=== PATIENT | male | born 1955 | race Caucasian/White ===

== ENCOUNTER 2021-05-12 09:41 | Emergency (ER) | payer MEDICARE ==
[2021-05-12] MEDS ORDERED: Albuterol/Ipratropium 3.0-0.5 MG/3 ML Neb Soln NEB ONE (09:49)
[2021-05-12] MEDS ORDERED: methylPREDNISolone Sodium Succinate 125 MG/2 ML SDV IM ONE (09:49)
[2021-05-12] MEDS ORDERED: LORazepam 2 MG/ML SDV IM STA (09:54)
--- NOTE | 2021-05-12 10:43 | EDM.PDOC ---
ED HPI GENERAL MEDICAL PROBLEM - General Stated Complaint: SOB Time Seen by Provider: 05/12/21 09:50 Source of Information: Reports: Patient History Limitations: Reports: No Limitations - History of Present Illness INITIAL COMMENTS - FREE TEXT/NARRATIVE: Patient presented to the ED because of dyspnea for 2-3 days, increase coughing which is non-productive. there is no fever, chills, N/V/D. He has a history of COPD and Asthma, he used his inhaler without significant relief. - Related Data Allergies Allergy/AdvReac Type Severity Reaction Status Date / Time No Known Allergies Allergy Unverified 03/26/21 10:12 Home Meds: Home Meds Albuterol Sulfate [Albuterol Sulfate Hfa] 2 inh INH Q4H PRN 02/18/21 [History] Albuterol/Ipratropium [DuoNeb 3.0-0.5 MG/3 ML] 3 ml INH Q4H PRN 02/18/21 [History] Aspirin 81 mg PO DAILY 02/18/21 [History] Clopidogrel [Plavix] 75 mg PO DAILY 02/18/21 [History] Famotidine 20 mg PO BID 02/18/21 [History] Fluticasone/Umeclidin/Vilanter [Trelegy Ellipta 100-62.5-25] 1 puff INH DAILY 02/18/21 [History] Gabapentin [Neurontin] 300 mg PO BID 02/18/21 [History] LORazepam [Lorazepam] 0.5 mg PO DAILY PRN 02/18/21 [History] Losartan [Cozaar] 25 mg PO DAILY 02/18/21 [History] Montelukast [Singulair] 10 mg PO BEDTIME 02/18/21 [History] Tamsulosin [Flomax] 0.4 mg PO BEDTIME 02/18/21 [History] atorvaSTATin [Lipitor] 40 mg PO BEDTIME 02/18/21 [History] busPIRone [Buspar] 5 mg PO BID 02/18/21 [History] carvediloL [Carvedilol] 12.5 mg PO BID 02/18/21 [History] metFORMIN HCl [Metformin HCl ER] 750 mg PO BID 02/18/21 [History] Ascorbate Calcium [Vitamin C] 500 mg PO DAILY PRN 03/25/21 [History] Citalopram Hydrobromide [Celexa] 40 mg PO DAILY 03/25/21 [History] Ketorolac [Acular 0.5% Ophth Soln] 1 drop EYERT TID 03/25/21 [History] prednisoLONE acetate [Pred Forte 1% Ophth Susp] 1 drop EYERT QID 03/25/21 [History] tiZANidine [Zanaflex] 2 mg PO BID 03/25/21 [History] Furosemide [Lasix] 40 mg PO DAILY #30 tablet 03/28/21 [Rx] Nicotine [Habitrol] 14 mg TRDERM BEDTIME #14 patch 03/28/21 [Rx] Tiotropium [place] [Spiriva Respimat] 0 gm INH DAILY inhaler 03/28/21 [Rx] Azithromycin [Zithromax] 500 mg PO DAILY #5 tab 05/12/21 [Rx] predniSONE [Prednisone] 40 mg PO DAILY #10 tablet 05/12/21 [Rx] Past Medical History HEENT History: Reports: Cataract Cardiovascular History: Reports: CAD, Heart Failure, Hypertension Respiratory History: Reports: COPD, SOB Endocrine/Metabolic History: Reports: Diabetes, Type I - Past Surgical History HEENT Surgical History: Reports: Cataract Surgery Cardiovascular Surgical History: Reports: Carotid Stents Social & Family History - Family History Family Medical History: No Pertinent Family History - Caffeine Use Caffeine Use: Reports: Coffee ED ROS GENERAL - Review of Systems Review Of Systems: See Below Constitutional: Reports: No Symptoms HEENT: Reports: No Symptoms Respiratory: Reports: Shortness of Breath Cardiovascular: Reports: No Symptoms Endocrine: Reports: No Symptoms GI/Abdominal: Reports: No Symptoms : Reports: No Symptoms Musculoskeletal: Reports: No Symptoms Skin: Reports: No Symptoms Neurological: Reports: No Symptoms Psychiatric: Reports: No Symptoms Hematologic/Lymphatic: Reports: No Symptoms ED EXAM, GENERAL - Physical Exam Exam: See Below Exam Limited By: No Limitations Ears: Normal External Exam, Normal [place] Nose: Normal Inspection, Normal Mucosa, No Blood Throat/Mouth: Normal Inspection, Normal Lips, Normal Teeth Neck: Normal Inspection Respiratory/Chest: No Respiratory Distress, Lungs Clear, No Accessory Muscle Use, Chest Non-Tender, Rhonchi, Wheezing Cardiovascular: Normal Peripheral Pulses, Regular Rate, Rhythm, No Edema, No Murmur, No Rub GI/Abdominal: Normal Bowel Sounds, Soft, Non-Tender, No Organomegaly, No Distention Back Exam: Normal Inspection, Full Range of Motion Extremities: Normal Inspection, Normal Range of Motion, Non-Tender Neurological: Alert, Oriented, CN II-XII Intact, Normal Cognition, Normal Gait, Normal Reflexes, No Motor/Sensory Deficits Psychiatric: Normal Affect Skin Exam: Warm Course - Vital Signs Text/Narrative:: Duoneb x1 Ativan 1 mg IM x1 Solumedrol 125 mg IM x1 Last Recorded V/S: Last Vital Signs Temp 36.8 C 05/12/21 09:45 Pulse 84 05/12/21 09:45 Resp 24 H 05/12/21 09:45 BP 148/115 H 05/12/21 09:45 Pulse Ox 97 05/12/21 09:45 - Orders/Labs/Meds Meds: Medications Discontinued Medications Generic Name Dose Route Start Last Admin Trade Name Bret PRN Reason Stop Dose Admin Albuterol/Ipratropium 3 ml 05/12/21 09:49 05/12/21 09:53 Albuterol/Ipratropium 3.0-0.5 Mg/3 Ml Neb Soln NEB 05/12/21 09:50 3 ml ONETIME ONE Administration Lorazepam 1 mg 05/12/21 09:54 05/12/21 10:07 Lorazepam 2 Mg/Ml Sdv IM 05/12/21 09:55 1 mg NOW STA Administration Methylprednisolone Sodium Succinate 125 mg 05/12/21 09:49 05/12/21 09:54 Methylprednisolone Sodium Succinate 125 Mg/2 Ml Sdv IM 05/12/21 09:50 125 mg ONETIME ONE Administration Departure - Departure Time of Disposition: 10:45 Disposition: Home, Self-Care 01 Condition: Good Clinical Impression: COPD exacerbation, Asthma exacerbation, Anxiety attack - Discharge Information Prescriptions: predniSONE [Prednisone] 40 mg PO DAILY #10 tablet Azithromycin [Zithromax] 500 mg PO DAILY #5 tab Instructions: Chronic Obstructive Pulmonary Disease, [id number], Asthma, Adult, [id number], Panic Attack Referrals: Gold Jama MD [Primary Care Provider] - Forms: ED Department Discharge Additional Instructions: Please read discharge instructions on COPD and Asthma flare up Drink 2 liters of water daily Prednisone 40 mg daily starting today Zithromax 500 mg daily starting today Albuterol inhaler, neb treatment as directed Follow up as needed
== END 2021-05-12 11:15 | disposition home or self-care (01) ==
LOC: FB.ED 09:41
DX: J44.1 Chronic obstructive pulmonary disease with (acute) exacerbation (principal); F41.9 Anxiety disorder, unspecified; I11.0 Hypertensive heart disease with heart failure; I50.9 Heart failure, unspecified; E10.9 Type 1 diabetes mellitus without complications; Z79.82 Long term (current) use of aspirin; Z79.02 Long term (current) use of antithrombotics/antiplatelets; Z79.899 Other long term (current) drug therapy
CPT/HCPCS: 96372; 99284; J2060; J2930; J7620-GY

== ENCOUNTER 2021-06-25 11:44 | Observation (INO) | payer MEDICARE ==
--- NOTE | 2021-06-25 11:53 | EDM.PDOC ---
ED HPI GENERAL MEDICAL PROBLEM - General Chief Complaint: Respiratory Problem Time Seen by Provider: 06/25/21 11:50 Source of Information: Reports: Patient History Limitations: Reports: No Limitations - History of Present Illness INITIAL COMMENTS - FREE TEXT/NARRATIVE: 65-year-old male who presents to the emergency department with increasing difficulty breathing, increasing cough and worsening anxiety. He has long- standing history of COPD and CHF with chronic difficulty breathing. He reports that over the past 3 days he has had an increase in his cough with creamy white thick phlegm production. He has had no fevers or chills. There has been no nausea or vomiting. He does have some tightness in his chest in that he feels that it is hard to take a deep breath and it is worse with breathing. He also reports a headache that is diffuse and is throbbing. He reports the headache is 10/10. No nausea or vomiting. He finds it difficult to get around secondary to his increased shortness of breath. He has been using his nebulizer treatments and his inhalers without much relief at home. He also reports swelling in both of his legs. He presents to the emergency department via private vehicle by his . There are no other associated signs or symptoms. There are no other modifying factors. 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 - Related Data Allergies Allergy/AdvReac Type Severity Reaction Status Date / Time No Known Allergies Allergy Verified 06/25/21 12:00 Home Meds: Home Meds Albuterol Sulfate [Albuterol Sulfate Hfa] 2 inh INH Q4H PRN 02/18/21 [History] Albuterol/Ipratropium [DuoNeb 3.0-0.5 MG/3 ML] 3 ml INH Q4H PRN 02/18/21 [History] Aspirin 81 mg PO DAILY 02/18/21 [History] Clopidogrel [Plavix] 75 mg PO DAILY 02/18/21 [History] Famotidine 20 mg PO BID 02/18/21 [History] Gabapentin [Neurontin] 600 mg PO BID 02/18/21 [History] LORazepam [Lorazepam] 0.5 mg PO DAILY PRN 02/18/21 [History] Losartan [Cozaar] 25 mg PO DAILY 02/18/21 [History] Montelukast [Singulair] 10 mg PO BEDTIME 02/18/21 [History] Tamsulosin [Flomax] 0.4 mg PO BEDTIME 02/18/21 [History] atorvaSTATin [Lipitor] 40 mg PO BEDTIME 02/18/21 [History] carvediloL [Carvedilol] 12.5 mg PO BID 02/18/21 [History] metFORMIN HCl [Metformin HCl ER] 750 mg PO BID 02/18/21 [History] Citalopram Hydrobromide [Celexa] 40 mg PO DAILY 03/25/21 [History] Furosemide [Lasix] 40 mg PO DAILY #30 tablet 03/28/21 [Rx] Oxymetazoline [Afrin Original 0.05% Nasal [place]] 1 spray NASBOTH DAILY PRN 06/25/21 [History] busPIRone [Buspar] 5 mg PO BID 06/25/21 [History] Past Medical History HEENT History: Reports: Cataract Cardiovascular History: Reports: CAD, Heart Failure, High Cholesterol, Hypertension, PVD Respiratory History: Reports: Asthma, COPD, SOB Psychiatric History: Reports: Anxiety Endocrine/Metabolic History: Reports: Diabetes, Type I - Past Surgical History HEENT Surgical History: Reports: Cataract Surgery Cardiovascular Surgical History: Reports: Carotid Stents, Vascular Surgery Social & Family History - Tobacco Use Tobacco Use Status *Q: Former Tobacco User (Quit smoking 3 years ago but was a heavy smoker prior to this.) - Caffeine Use Caffeine Use: Reports: None - Alcohol Use Alcohol Use History: No Alcohol Use Comment: Local use for the past 3 years. - Living Situation & Occupation Living situation: Reports: Occupation: Retired ED ROS GENERAL - Review of Systems Review Of Systems: See Below Constitutional: Reports: Malaise, Decreased Appetite. Denies: Fever, Chills HEENT: Reports: Other (Chronic nasal congestion unchanged.). Denies: Throat Pain, Throat Swelling Respiratory: Reports: Shortness of Breath, Wheezing, Cough, Sputum. Denies: Hemoptysis Cardiovascular: Reports: Dyspnea on Exertion, Edema, Lightheadedness. Denies: Chest Pain Endocrine: Reports: Fatigue GI/Abdominal: Denies: Abdominal Pain, Diarrhea, Nausea, Vomiting : Denies: Dysuria, Hematuria Musculoskeletal: Reports: Back Pain (Chronic). Denies: Neck Pain, Arm Pain Skin: Denies: Diaphoresis, Rash Neurological: Denies: Confusion, Dizziness Psychiatric: Reports: Anxiety. Denies: Confusion Hematologic/Lymphatic: Reports: Easy Bleeding, Easy Bruising, Other (on plavix) Immunologic: Reports: Other (vaccinated for covid and has gotten the booster vaccine as well.) ED EXAM, GENERAL - Physical Exam Exam: See Below Exam Limited By: No Limitations General Appearance: Alert, WD/WN, Moderate Distress (Audible wheezes, increased work of breathing. Speaking in 1-2 word sentences.) Eye Exam: Bilateral Eye: EOMI, Normal Inspection (Sclera are anicteric), PERRL Ears: Normal External Exam, Hearing Grossly Normal Ear Exam: Bilateral Ear: Auricle Normal Nose: No Blood, Nasal Drainage, Other (Nasal congestion) Throat/Mouth: Normal Inspection, Normal Voice, No Airway Compromise Head: Atraumatic, Normocephalic Neck: Normal Inspection, Supple, Non-Tender, Full Range of Motion Respiratory/Chest: Chest Non-Tender, Respiratory Distress (Increased work of breathing.), Rhonchi, Wheezing, Accessory Muscle Use Cardiovascular: Normal Peripheral Pulses, Regular Rate, Rhythm, No Gallop, No Murmur Peripheral Pulses: 2+: Radial (L), Radial (R), Dorsalis Pedis (L), Dorsalis Pedis (R) GI/Abdominal: Normal Bowel Sounds, Soft, Non-Tender, No Mass Back Exam: Normal Inspection, Full Range of Motion Extremities: Normal Range of Motion, Non-Tender, Normal Capillary Refill, Pedal Edema. No: Increased Warmth, Redness Neurological: Alert, Oriented, CN II-XII Intact, Normal Cognition, No Motor/Sensory Deficits Psychiatric: Depressed Mood Skin Exam: Warm, Dry, Intact, Normal Color, No Rash #1 Interpretation EKG Date: 06/25/21 Time: 12:33 Rhythm: NSR Rate (Beats/Min): 72 [place]: LAD-Left [place] Deviation P-Wave: Present QRS: Other (LAFB) ST-T: Other (Poor R-wave progression) QT: Normal Comparison: No Change (No change from an EKG performed on 03/27/2021.) Course - Vital Signs Last Recorded V/S: Last Vital Signs Temp 36.6 C 06/25/21 11:45 Pulse 78 06/25/21 11:45 Resp 20 06/25/21 11:45 BP Pulse Ox 93 L 06/25/21 11:45 - Orders/Labs/Meds Orders: Active Orders 24 hr Category Date Time Status Admission Status [Patient Status] [ADT] Routine ADT 06/25/21 15:09 Active Cardiac Monitoring [RC] QSHIFT Care 06/25/21 15:09 Active RT Aerosol Therapy [RC] ASDIRECTED Care 06/25/21 13:48 Active Consistent Carbohydrate Diet [DIET] Diet 06/25/21 Dinner Ordered Sodium Chloride 0.9% [Saline Flush] Med 06/25/21 12:01 Active 10 ml FLUSH ASDIRECTED PRN Peripheral IV Insertion Pediatric [OM.PC] Routine Oth 06/25/21 12:01 Ordered EKG 12 Lead [EK] Routine Ther 06/25/21 12:01 Ordered Medication Orders Sodium Chloride (Sodium Chloride 0.9% 10 Ml Syringe) 10 ml FLUSH ASDIRECTED PRN PRN Reason: Keep Vein Open Last Admin: 06/25/21 16:40 Dose: 10 ml Documented by: Admin: 06/25/21 12:15 Dose: 10 ml Documented by: DALIA Labs: Laboratory Tests 06/25/21 06/25/21 06/25/21 Range/Units 12:25 12:25 12:25 WBC 5.1 (3.2-10.1) x10-3/uL RBC 3.98 (3.90-5.90) x10(6)uL Hgb 12.1 L (12.9-17.7) g/dL Hct 36.8 L (38.3-50.1) % MCV 92.4 (80.8-98.7) fL MCH 30.4 (27.0-33.3) pg MCHC 32.9 (28.7-35.3) g/dL RDW 14.7 (12.4-15.0) % Plt Count 157 (117-477) x10(3)uL MPV 7.1 (6.7-11.0) fL Neut % (Auto) 64.1 (40.3-71.8) % Lymph % (Auto) 22.2 (15.8-45.3) % [place] % (Auto) 10.3 (5.5-15.2) % Eos % (Auto) 2.5 (0.1-6.8) % Baso % (Auto) 0.9 (0.3-3.8) % Neut # (Auto) 3.3 (1.7-6.9) x10-3/uL Lymph # (Auto) 1.1 (0.5-4.5) x10-3/uL [place] # (Auto) 0.5 (0.0-1.2) x10-3/uL Eos # (Auto) 0.1 (0.0-0.6) x10-3/uL Baso # (Auto) 0.0 (0.0-0.3) x10-3/uL PT 11.0 (9.0-11.1) sec INR 1.02 (1.00-1.24) POC VBG pH (7.32-7.43) pH Units POC VBG pCO2 (41-51) mmHg POC VBG HCO3 (22-29) mmol/L VBG Base Excess (-2 - 3+) mmol/L O2 Delivery Device Oxygen Flow Rate LPM Sodium 138 (135-145) mmol/L Potassium 4.1 (3.5-5.3) mmol/L Chloride 103 (100-110) mmol/L Carbon Dioxide 31 (21-32) mmol/L BUN 16 D (7-18) mg/dL Creatinine 1.4 H (0.70-1.30) mg/dL Est Cr Clr Drug Dosing TNP Estimated GFR (MDRD) 51 L (>60) BUN/Creatinine Ratio 11.4 (9-20) Glucose 122 H D (80-116) mg/dL Calcium 8.8 (8.6-10.2) mg/dL Magnesium 1.8 (1.8-2.5) mg/dL Total Bilirubin 0.7 (0.1-1.3) mg/dL AST 15 (5-25) IU/L ALT 23 D (12-36) U/L Alkaline Phosphatase 53 L (56-112) IU/L Troponin I (4.0-60.3) pg/mL C-Reactive Protein (0.5-0.9) mg/dL NT-Pro-B Natriuret Pep (<=125) pg/mL Total Protein 6.6 (6.0-8.0) g/dL Albumin 3.7 (3.2-4.6) g/dL Globulin 2.9 g/dL Albumin/Globulin Ratio 1.3 Urine Color (YELLOW) Urine Appearance (CLEAR) Urine pH (5.0-6.5) Ur Specific [place] (1.010-1.025) Urine Protein (NEGATIVE) mg/dL Urine Glucose (UA) (NORMAL) mg/dL Urine Ketones (NEGATIVE) mg/dL Urine Occult Blood (NEGATIVE) Urine Nitrite (NEGATIVE) Urine Bilirubin (NEGATIVE) Urine Urobilinogen (NEGATIVE) mg/dL Ur Leukocyte Esterase (NEGATIVE) Urine RBC (0-5) Urine WBC (0-5) Ur Squamous Epith Cells (NS,R,O) Urine Bacteria (NS) SARS-CoV-2 RNA (DEYSI) (NEGATIVE) 06/25/21 06/25/21 06/25/21 Range/Units 12:25 12:25 12:25 WBC (3.2-10.1) x10-3/uL RBC (3.90-5.90) x10(6)uL Hgb (12.9-17.7) g/dL Hct (38.3-50.1) % MCV (80.8-98.7) fL MCH (27.0-33.3) pg MCHC (28.7-35.3) g/dL RDW (12.4-15.0) % Plt Count (117-477) x10(3)uL MPV (6.7-11.0) fL Neut % (Auto) (40.3-71.8) % Lymph % (Auto) (15.8-45.3) % [place] % (Auto) (5.5-15.2) % Eos % (Auto) (0.1-6.8) % Baso % (Auto) (0.3-3.8) % Neut # (Auto) (1.7-6.9) x10-3/uL Lymph # (Auto) (0.5-4.5) x10-3/uL [place] # (Auto) (0.0-1.2) x10-3/uL Eos # (Auto) (0.0-0.6) x10-3/uL Baso # (Auto) (0.0-0.3) x10-3/uL PT (9.0-11.1) sec INR (1.00-1.24) POC VBG pH (7.32-7.43) pH Units POC VBG pCO2 (41-51) mmHg POC VBG HCO3 (22-29) mmol/L VBG Base Excess (-2 - 3+) mmol/L O2 Delivery Device Oxygen Flow Rate LPM Sodium (135-145) mmol/L Potassium (3.5-5.3) mmol/L Chloride (100-110) mmol/L Carbon Dioxide (21-32) mmol/L BUN (7-18) mg/dL Creatinine (0.70-1.30) mg/dL Est Cr Clr Drug Dosing Estimated GFR (MDRD) (>60) BUN/Creatinine Ratio (9-20) Glucose (80-116) mg/dL Calcium (8.6-10.2) mg/dL Magnesium (1.8-2.5) mg/dL Total Bilirubin (0.1-1.3) mg/dL AST (5-25) IU/L ALT (12-36) U/L Alkaline Phosphatase (56-112) IU/L Troponin I 6.6 (4.0-60.3) pg/mL C-Reactive Protein < 0.2 L (0.5-0.9) mg/dL NT-Pro-B Natriuret Pep 91 (<=125) pg/mL Total Protein (6.0-8.0) g/dL Albumin (3.2-4.6) g/dL Globulin g/dL Albumin/Globulin Ratio Urine Color (YELLOW) Urine Appearance (CLEAR) Urine pH (5.0-6.5) Ur Specific [place] (1.010-1.025) Urine Protein (NEGATIVE) mg/dL Urine Glucose (UA) (NORMAL) mg/dL Urine Ketones (NEGATIVE) mg/dL Urine Occult Blood (NEGATIVE) Urine Nitrite (NEGATIVE) Urine Bilirubin (NEGATIVE) Urine Urobilinogen (NEGATIVE) mg/dL Ur Leukocyte Esterase (NEGATIVE) Urine RBC (0-5) Urine WBC (0-5) Ur Squamous Epith Cells (NS,R,O) Urine Bacteria (NS) SARS-CoV-2 RNA (DEYSI) (NEGATIVE) 06/25/21 06/25/21 06/25/21 Range/Units 12:29 12:40 14:15 WBC (3.2-10.1) x10-3/uL RBC (3.90-5.90) x10(6)uL Hgb (12.9-17.7) g/dL Hct (38.3-50.1) % MCV (80.8-98.7) fL MCH (27.0-33.3) pg MCHC (28.7-35.3) g/dL RDW (12.4-15.0) % Plt Count (117-477) x10(3)uL MPV (6.7-11.0) fL Neut % (Auto) (40.3-71.8) % Lymph % (Auto) (15.8-45.3) % [place] % (Auto) (5.5-15.2) % Eos % (Auto) (0.1-6.8) % Baso % (Auto) (0.3-3.8) % Neut # (Auto) (1.7-6.9) x10-3/uL Lymph # (Auto) (0.5-4.5) x10-3/uL [place] # (Auto) (0.0-1.2) x10-3/uL Eos # (Auto) (0.0-0.6) x10-3/uL Baso # (Auto) (0.0-0.3) x10-3/uL PT (9.0-11.1) sec INR (1.00-1.24) POC VBG pH 7.37 (7.32-7.43) pH Units POC VBG pCO2 51 (41-51) mmHg POC VBG HCO3 30 H (22-29) mmol/L VBG Base Excess 4 H (-2 - 3+) mmol/L O2 Delivery Device Nasal cannula Oxygen Flow Rate 2 LPM Sodium (135-145) mmol/L Potassium (3.5-5.3) mmol/L Chloride (100-110) mmol/L Carbon Dioxide (21-32) mmol/L BUN (7-18) mg/dL Creatinine (0.70-1.30) mg/dL Est Cr Clr Drug Dosing Estimated GFR (MDRD) (>60) BUN/Creatinine Ratio (9-20) Glucose (80-116) mg/dL Calcium (8.6-10.2) mg/dL Magnesium (1.8-2.5) mg/dL Total Bilirubin (0.1-1.3) mg/dL AST (5-25) IU/L ALT (12-36) U/L Alkaline Phosphatase (56-112) IU/L Troponin I (4.0-60.3) pg/mL C-Reactive Protein (0.5-0.9) mg/dL NT-Pro-B Natriuret Pep (<=125) pg/mL Total Protein (6.0-8.0) g/dL Albumin (3.2-4.6) g/dL Globulin g/dL Albumin/Globulin Ratio Urine Color Yellow (YELLOW) Urine Appearance Clear (CLEAR) Urine pH 7.0 H (5.0-6.5) Ur Specific [place] 1.005 L (1.010-1.025) Urine Protein Negative (NEGATIVE) mg/dL Urine Glucose (UA) Normal (NORMAL) mg/dL Urine Ketones Negative (NEGATIVE) mg/dL Urine Occult Blood Negative (NEGATIVE) Urine Nitrite Negative (NEGATIVE) Urine Bilirubin Negative (NEGATIVE) Urine Urobilinogen Normal (NEGATIVE) mg/dL Ur Leukocyte Esterase Negative (NEGATIVE) Urine RBC Not seen (0-5) Urine WBC 0-5 (0-5) Ur Squamous Epith Cells Few H (NS,R,O) Urine Bacteria Few H (NS) SARS-CoV-2 RNA (DEYSI) Negative (NEGATIVE) Meds: Medications Generic Name Dose Route Start Last Admin Trade Name Freq PRN Reason Stop Dose Admin Sodium Chloride 10 ml 06/25/21 12:01 06/25/21 16:40 Sodium Chloride 0.9% 10 Ml Syringe FLUSH 10 ml ASDIRECTED PRN Administration Keep Vein Open Discontinued Medications Generic Name Dose Route Start Last Admin Trade Name Freq PRN Reason Stop Dose Admin Albuterol/Ipratropium 3 ml 06/25/21 13:47 06/25/21 14:05 Albuterol/Ipratropium 3.0-0.5 Mg/3 Ml Neb Soln NEB 06/25/21 13:48 3 ml ONETIME ONE Administration Ceftriaxone Sodium 1 gm 06/25/21 15:12 06/25/21 16:40 Ceftriaxone 1 Gm Vial IVPUSH 06/25/21 15:13 1 gm ONETIME ONE Administration Furosemide 40 mg 06/25/21 15:09 06/25/21 16:40 Furosemide 40 Mg/4 Ml Vial IVPUSH 06/25/21 15:10 40 mg NOW ONE Administration Lorazepam 1 mg 06/25/21 12:29 06/25/21 12:40 Lorazepam 1 Mg Tab PO 06/25/21 12:30 1 mg ONETIME ONE Administration Methylprednisolone Sodium Succinate 125 mg 06/25/21 13:47 06/25/21 14:00 Methylprednisolone Sodium Succinate 125 Mg/2 Ml Sdv IVPUSH 06/25/21 13:48 125 mg ONETIME ONE Administration - Radiology Interpretation Free Text/Narrative:: Portable chest x-ray shows no definite pneumonia and really no change from previous chest x-ray per my read. - Re-Assessments/Exams Free Text/Narrative Re-Assessment/Exam: 06/25/21 1300: White blood cell count is 5.1. Hemoglobin is 12.1. Platelet count is 157K. Sodium was 138. Potassium is 4.1. Bicarbonate is 31. BUN is 16 and creatinine is 1.4. Glucose is 122. LFTs are normal. Troponin is 6.6. A magnesium level is normal. A venous pH was 7.37. PCO2 was 51. The patient has been vaccinated fully against Covid and also has just received the booster Mary. We will be doing a rapid Covid on him nonetheless. He is still having cough and wheezing with decreased air movement. I don't hear any rales. He is requiring some minimal oxygen to keep him in the 91-95% range. He does seem very anxious and will be given Ativan 1 mg oral. 06/25/21 1400: Chest x-ray shows no definite infiltrate and no real change from previous. A proBNP was normal. A Covid test was negative. I will order a DuoNeb to be given and also Solu-Medrol to be given IV as well. The patient still has increased work of breathing and he is having some hypoxia which is new as well. I think he most probably will need admission for cares. 06/25/21 1450: Urinalysis had been performed and it was negative. The patient was reevaluated after his neb and Solu-Medrol and he does seem to be moving elevated better but he still has a very wheezy cough and increased work of breathing. He will need admission for COPD exacerbation secondary to his hypoxic and hypercapnic respiratory failure need IV steroids, frequent nebulizer treatments and IV antibiotics. He will also need some diuresis because he does have some increase in swelling in his legs. I this with the patient and he would be in agreement with admission. 06/25/21 15:08: I discussed the patient's case with Dr. Sparrow, hospitalist, and he has agreed to admit the patient. I will place some initial orders and he will see the patient at about 5 PM. Departure - Departure Time of Disposition: 15:09 Disposition: Refer to Observation Condition: Fair Clinical Impression: Acute exacerbation of chronic obstructive pulmonary disease (COPD), Peripheral edema Respiratory failure with hypoxia Qualifiers: Chronicity: acute Qualified Code(s): J96.01 - Acute respiratory failure with hypoxia - Discharge Information Sepsis Event Note (ED) - Focused Exam Vital Signs: Vital Signs Temp Pulse Resp Pulse Ox 06/25/21 11:45 36.6 C 78 20 93 L - My Orders Last 24 Hours: My Active Orders 06/25/21 12:01 Sodium Chloride 0.9% [Saline Flush] 10 ml FLUSH ASDIRECTED PRN Peripheral IV Insertion Pediatric [OM.PC] Routine EKG 12 Lead [EK] Routine 06/25/21 13:48 RT Aerosol Therapy [RC] ASDIRECTED 06/25/21 15:09 Admission Status [Patient Status] [ADT] Routine Cardiac Monitoring [RC] QSHIFT 06/25/21 Dinner Consistent Carbohydrate Diet [DIET] - Assessment/Plan Last 24 Hours: My Active Orders 06/25/21 12:01 Sodium Chloride 0.9% [Saline Flush] 10 ml FLUSH ASDIRECTED PRN Peripheral IV Insertion Pediatric [OM.PC] Routine EKG 12 Lead [EK] Routine 06/25/21 13:48 RT Aerosol Therapy [RC] ASDIRECTED 06/25/21 15:09 Admission Status [Patient Status] [ADT] Routine Cardiac Monitoring [RC] QSHIFT 06/25/21 Dinner Consistent Carbohydrate Diet [DIET]
[2021-06-25] MEDS: Sodium Chloride 0.9% 10 ML Syringe FLUSH PRN ×4 (12:15→22:05)
[2021-06-25] MEDS ORDERED: LORazepam 1 MG Tab PO ONE (12:29)
[2021-06-25 12:35] LABS: BASE EXCESS VENOUS,POC 4 mmol/L (-2 - 3+); PCO2 VENOUS,POC 51 mmHg (41-51); PH VENOUS,POC 7.37 pH Units (7.32-7.43)
[2021-06-25] MEDS ORDERED: methylPREDNISolone Sodium Succinate 125 MG/2 ML SDV IVPUSH ONE (13:47)
[2021-06-25] MEDS ORDERED: Albuterol/Ipratropium 3.0-0.5 MG/3 ML Neb Soln NEB ONE (13:47)
--- NOTE | 2021-06-25 13:58 | CR ---
INDICATION: Cough, difficulty breathing. CHEST, ONE VIEW: AP upright portable view of the chest, 06/25/21, was compared with 03/25/21 and 02/18/21. The upper lung field pulmonary vasculature remains slightly prominent with a mildly prominent heart, raising question of mild degree of CHF. This should be correlated clinically. Pulmonary markings otherwise are similar to the previous examination without a definite active infiltrate or effusion identified. However, markings are somewhat heavy in the right midlung field and make it difficult to exclude a minimal patchy bronchopneumonia in that area, especially. Overlying EKG leads are noted. The aorta is minimally tortuous with minimal calcifications suggested in the arch. IMPRESSION: Overall stable appearance of the chest with question of a mild degree of CHF. It is difficult to exclude a minimal patchy bronchopneumonia in the right midlung field additionally. MTDD
[2021-06-25] MEDS ORDERED: Furosemide 40 MG/4 ML VIAL IVPUSH ONE (15:09)
[2021-06-25] MEDS ORDERED: cefTRIAXone 1 GM Vial IVPUSH ONE (15:12)
[2021-06-25] MEDS ORDERED: Oxymetazoline 0.05% Nasal Spray 30 ML Bottle NASBOTH PRN (17:05)
[2021-06-25] MEDS ORDERED: 50% Dextrose in Water 50 ML Syringe IVPUSH PRN (17:05)
[2021-06-25] MEDS ORDERED: Glucagon,Human Recombinant 1 MG Vial IM PRN (17:05)
[2021-06-25] MEDS ORDERED: LORazepam 0.5 MG Tab PO PRN (17:05)
--- NOTE | 2021-06-25 17:12 | PCM.HP.2 ---
H&P History of Present Illness - General Date of Service: 06/25/21 Admit Problem/Dx: Admission Diagnosis/Problem Admission Diagnosis/Problem COPD with acute lower respiratory infection Source of Information: Patient, Provider History Limitations: Reports: No Limitations - History of Present Illness Initial Comments - Free Text/Narative: Yaya is a 65-year-old male who presented to ER with cough, worsening wheezing and shortness of breath about 3 day period. He reports having been sick on and off for at least 2 months, in fact, he was here in February with a similar present ation. His cough is productive yellow sputum, but he has no chest pain or fever. He endorses a history of COPD/asthma, and history of CHF. He also has a history of anxiety, type 2 diabetes and hypertension. Is a previous smoker with a more than 50 year pack history.He uses about 2 L of O2 at night - Related Data Allergies/Adverse Reactions: Allergies Allergy/AdvReac Type Severity Reaction Status Date / Time No Known Allergies Allergy Verified 06/25/21 12:00 Home Medications: Home Meds Albuterol Sulfate [Albuterol Sulfate Hfa] 2 inh INH Q4H PRN 02/18/21 [History] Albuterol/Ipratropium [DuoNeb 3.0-0.5 MG/3 ML] 3 ml INH Q4H PRN 02/18/21 [History] Aspirin 81 mg PO DAILY 02/18/21 [History] Clopidogrel [Plavix] 75 mg PO DAILY 02/18/21 [History] Famotidine 20 mg PO BID 02/18/21 [History] Gabapentin [Neurontin] 600 mg PO BID 02/18/21 [History] LORazepam [Lorazepam] 0.5 mg PO DAILY PRN 02/18/21 [History] Losartan [Cozaar] 25 mg PO DAILY 02/18/21 [History] Montelukast [Singulair] 10 mg PO BEDTIME 02/18/21 [History] Tamsulosin [Flomax] 0.4 mg PO BEDTIME 02/18/21 [History] atorvaSTATin [Lipitor] 40 mg PO BEDTIME 02/18/21 [History] carvediloL [Carvedilol] 12.5 mg PO BID 02/18/21 [History] metFORMIN HCl [Metformin HCl ER] 750 mg PO BID 02/18/21 [History] Citalopram Hydrobromide [Celexa] 40 mg PO DAILY 03/25/21 [History] Furosemide [Lasix] 40 mg PO DAILY #30 tablet 03/28/21 [Rx] Oxymetazoline [Afrin Original 0.05% Nasal [place]] 1 spray NASBOTH DAILY PRN 06/25/21 [History] busPIRone [Buspar] 5 mg PO BID 06/25/21 [History] Past Medical History HEENT History: Reports: Cataract Cardiovascular History: Reports: CAD, Heart Failure, High Cholesterol, Hypertension, PVD Respiratory History: Reports: Asthma, COPD, SOB Gastrointestinal History: Reports: None Genitourinary History: Reports: None Musculoskeletal History: Reports: Arthritis Psychiatric History: Reports: Anxiety Endocrine/Metabolic History: Reports: Diabetes, Type I Immunologic History: Reports: None Oncologic (Cancer) History: Reports: None - Infectious Disease History Infectious Disease History: Reports: None - Past Surgical History Head Surgeries/Procedures: Reports: None HEENT Surgical History: Reports: Cataract Surgery Cardiovascular Surgical History: Reports: Carotid Stents, Vascular Surgery Oncologic Surgical History: Reports: None Social & Family History - Family History Family Medical History: No Pertinent Family History - Tobacco Use Tobacco Use Status *Q: Former Tobacco User Used Tobacco, but Quit: Yes Month/Year Tobacco Last Used: 2017 - Caffeine Use Caffeine Use: Reports: Coffee - Recreational Drug Use Recreational Drug Use: No - Living Situation & Occupation Living situation: Reports: Occupation: Retired H&P Review of Systems - Review of Systems: Review Of Systems: Comprehensive ROS is negative, except as noted in HPI. Exam - Exam Exam: See Below - Vital Signs Vital Signs: Last Vital Signs Temp 98 F 06/25/21 11:45 Pulse 78 06/25/21 11:45 Resp 20 06/25/21 11:45 BP Pulse Ox 93 L 06/25/21 11:45 Weight: 92.533 kg - Exam General: Alert, Oriented, 4 HEENT: PERRLA, Hearing Intact, Mucosa Moist & [place], Nares Patent, Normal Nasal Septum, Posterior Pharynx Clear, Conjunctiva Clear, EOMI, EACs Clear, TMs Clear Neck: Supple, Trachea Midline, 2 Lungs: Decreased Breath Sounds, Rhonchi Cardiovascular: Regular Rate, Regular Rhythm GI/Abdominal Exam: Normal Bowel Sounds, Soft, Non-Tender, No Organomegaly, No Distention, No Abnormal Bruit, No Mass, Pelvis Stable (Male) Exam: Deferred Rectal (Males) Exam: Deferred Back Exam: Normal Inspection, Full Range of Motion, NT Extremities: Pedal Edema Skin: Warm, Dry, Intact Neurological: Cranial Nerves Intact, Reflexes Equal Bilateral Neuro Extensive - Mental Status: Alert, Oriented x3, Normal Mood/Affect, Normal Cognition Neuro Extensive - Motor, Sensory, Reflexes: CN II-XII Intact, Normal Gait, Normal Reflexes Psychiatric: Alert, Normal Affect, Normal Mood - Patient Data Lab Results Last 24 hrs: Laboratory Results - last 24 hr 06/25/21 06/25/21 06/25/21 Range/Units 12:25 12:25 12:25 WBC 5.1 (3.2-10.1) x10-3/uL RBC 3.98 (3.90-5.90) x10(6)uL Hgb 12.1 L (12.9-17.7) g/dL Hct 36.8 L (38.3-50.1) % MCV 92.4 (80.8-98.7) fL MCH 30.4 (27.0-33.3) pg MCHC 32.9 (28.7-35.3) g/dL RDW 14.7 (12.4-15.0) % Plt Count 157 (117-477) x10(3)uL MPV 7.1 (6.7-11.0) fL Neut % (Auto) 64.1 (40.3-71.8) % Lymph % (Auto) 22.2 (15.8-45.3) % Major % (Auto) 10.3 (5.5-15.2) % Eos % (Auto) 2.5 (0.1-6.8) % Baso % (Auto) 0.9 (0.3-3.8) % Neut # (Auto) 3.3 (1.7-6.9) x10-3/uL Lymph # (Auto) 1.1 (0.5-4.5) x10-3/uL Major # (Auto) 0.5 (0.0-1.2) x10-3/uL Eos # (Auto) 0.1 (0.0-0.6) x10-3/uL Baso # (Auto) 0.0 (0.0-0.3) x10-3/uL PT 11.0 (9.0-11.1) sec INR 1.02 (1.00-1.24) POC VBG pH (7.32-7.43) pH Units POC VBG pCO2 (41-51) mmHg POC VBG HCO3 (22-29) mmol/L VBG Base Excess (-2 - 3+) mmol/L O2 Delivery Device Oxygen Flow Rate LPM Sodium 138 (135-145) mmol/L Potassium 4.1 (3.5-5.3) mmol/L Chloride 103 (100-110) mmol/L Carbon Dioxide 31 (21-32) mmol/L BUN 16 D (7-18) mg/dL Creatinine 1.4 H (0.70-1.30) mg/dL Est Cr Clr Drug Dosing TNP Estimated GFR (MDRD) 51 L (>60) BUN/Creatinine Ratio 11.4 (9-20) Glucose 122 H D (80-116) mg/dL Calcium 8.8 (8.6-10.2) mg/dL Magnesium 1.8 (1.8-2.5) mg/dL Total Bilirubin 0.7 (0.1-1.3) mg/dL AST 15 (5-25) IU/L ALT 23 D (12-36) U/L Alkaline Phosphatase 53 L (56-112) IU/L Troponin I (4.0-60.3) pg/mL C-Reactive Protein (0.5-0.9) mg/dL NT-Pro-B Natriuret Pep (<=125) pg/mL Total Protein 6.6 (6.0-8.0) g/dL Albumin 3.7 (3.2-4.6) g/dL Globulin 2.9 g/dL Albumin/Globulin Ratio 1.3 Urine Color (YELLOW) Urine Appearance (CLEAR) Urine pH (5.0-6.5) Ur Specific [place] (1.010-1.025) Urine Protein (NEGATIVE) mg/dL Urine Glucose (UA) (NORMAL) mg/dL Urine Ketones (NEGATIVE) mg/dL Urine Occult Blood (NEGATIVE) Urine Nitrite (NEGATIVE) Urine Bilirubin (NEGATIVE) Urine Urobilinogen (NEGATIVE) mg/dL Ur Leukocyte Esterase (NEGATIVE) Urine RBC (0-5) Urine WBC (0-5) Ur Squamous Epith Cells (NS,R,O) Urine Bacteria (NS) SARS-CoV-2 RNA (DEYSI) (NEGATIVE) 06/25/21 06/25/21 06/25/21 Range/Units 12:25 12:25 12:25 WBC (3.2-10.1) x10-3/uL RBC (3.90-5.90) x10(6)uL Hgb (12.9-17.7) g/dL Hct (38.3-50.1) % MCV (80.8-98.7) fL MCH (27.0-33.3) pg MCHC (28.7-35.3) g/dL RDW (12.4-15.0) % Plt Count (117-477) x10(3)uL MPV (6.7-11.0) fL Neut % (Auto) (40.3-71.8) % Lymph % (Auto) (15.8-45.3) % Major % (Auto) (5.5-15.2) % Eos % (Auto) (0.1-6.8) % Baso % (Auto) (0.3-3.8) % Neut # (Auto) (1.7-6.9) x10-3/uL Lymph # (Auto) (0.5-4.5) x10-3/uL Major # (Auto) (0.0-1.2) x10-3/uL Eos # (Auto) (0.0-0.6) x10-3/uL Baso # (Auto) (0.0-0.3) x10-3/uL PT (9.0-11.1) sec INR (1.00-1.24) POC VBG pH (7.32-7.43) pH Units POC VBG pCO2 (41-51) mmHg POC VBG HCO3 (22-29) mmol/L VBG Base Excess (-2 - 3+) mmol/L O2 Delivery Device Oxygen Flow Rate LPM Sodium (135-145) mmol/L Potassium (3.5-5.3) mmol/L Chloride (100-110) mmol/L Carbon Dioxide (21-32) mmol/L BUN (7-18) mg/dL Creatinine (0.70-1.30) mg/dL Est Cr Clr Drug Dosing Estimated GFR (MDRD) (>60) BUN/Creatinine Ratio (9-20) Glucose (80-116) mg/dL Calcium (8.6-10.2) mg/dL Magnesium (1.8-2.5) mg/dL Total Bilirubin (0.1-1.3) mg/dL AST (5-25) IU/L ALT (12-36) U/L Alkaline Phosphatase (56-112) IU/L Troponin I 6.6 (4.0-60.3) pg/mL C-Reactive Protein < 0.2 L (0.5-0.9) mg/dL NT-Pro-B Natriuret Pep 91 (<=125) pg/mL Total Protein (6.0-8.0) g/dL Albumin (3.2-4.6) g/dL Globulin g/dL Albumin/Globulin Ratio Urine Color (YELLOW) Urine Appearance (CLEAR) Urine pH (5.0-6.5) Ur Specific [place] (1.010-1.025) Urine Protein (NEGATIVE) mg/dL Urine Glucose (UA) (NORMAL) mg/dL Urine Ketones (NEGATIVE) mg/dL Urine Occult Blood (NEGATIVE) Urine Nitrite (NEGATIVE) Urine Bilirubin (NEGATIVE) Urine Urobilinogen (NEGATIVE) mg/dL Ur Leukocyte Esterase (NEGATIVE) Urine RBC (0-5) Urine WBC (0-5) Ur Squamous Epith Cells (NS,R,O) Urine Bacteria (NS) SARS-CoV-2 RNA (DEYSI) (NEGATIVE) 06/25/21 06/25/21 06/25/21 Range/Units 12:29 12:40 14:15 WBC (3.2-10.1) x10-3/uL RBC (3.90-5.90) x10(6)uL Hgb (12.9-17.7) g/dL Hct (38.3-50.1) % MCV (80.8-98.7) fL MCH (27.0-33.3) pg MCHC (28.7-35.3) g/dL RDW (12.4-15.0) % Plt Count (117-477) x10(3)uL MPV (6.7-11.0) fL Neut % (Auto) (40.3-71.8) % Lymph % (Auto) (15.8-45.3) % Major % (Auto) (5.5-15.2) % Eos % (Auto) (0.1-6.8) % Baso % (Auto) (0.3-3.8) % Neut # (Auto) (1.7-6.9) x10-3/uL Lymph # (Auto) (0.5-4.5) x10-3/uL Major # (Auto) (0.0-1.2) x10-3/uL Eos # (Auto) (0.0-0.6) x10-3/uL Baso # (Auto) (0.0-0.3) x10-3/uL PT (9.0-11.1) sec INR (1.00-1.24) POC VBG pH 7.37 (7.32-7.43) pH Units POC VBG pCO2 51 (41-51) mmHg POC VBG HCO3 30 H (22-29) mmol/L VBG Base Excess 4 H (-2 - 3+) mmol/L O2 Delivery Device Nasal cannula Oxygen Flow Rate 2 LPM Sodium (135-145) mmol/L Potassium (3.5-5.3) mmol/L Chloride (100-110) mmol/L Carbon Dioxide (21-32) mmol/L BUN (7-18) mg/dL Creatinine (0.70-1.30) mg/dL Est Cr Clr Drug Dosing Estimated GFR (MDRD) (>60) BUN/Creatinine Ratio (9-20) Glucose (80-116) mg/dL Calcium (8.6-10.2) mg/dL Magnesium (1.8-2.5) mg/dL Total Bilirubin (0.1-1.3) mg/dL AST (5-25) IU/L ALT (12-36) U/L Alkaline Phosphatase (56-112) IU/L Troponin I (4.0-60.3) pg/mL C-Reactive Protein (0.5-0.9) mg/dL NT-Pro-B Natriuret Pep (<=125) pg/mL Total Protein (6.0-8.0) g/dL Albumin (3.2-4.6) g/dL Globulin g/dL Albumin/Globulin Ratio Urine Color Yellow (YELLOW) Urine Appearance Clear (CLEAR) Urine pH 7.0 H (5.0-6.5) Ur Specific [place] 1.005 L (1.010-1.025) Urine Protein Negative (NEGATIVE) mg/dL Urine Glucose (UA) Normal (NORMAL) mg/dL Urine Ketones Negative (NEGATIVE) mg/dL Urine Occult Blood Negative (NEGATIVE) Urine Nitrite Negative (NEGATIVE) Urine Bilirubin Negative (NEGATIVE) Urine Urobilinogen Normal (NEGATIVE) mg/dL Ur Leukocyte Esterase Negative (NEGATIVE) Urine RBC Not seen (0-5) Urine WBC 0-5 (0-5) Ur Squamous Epith Cells Few H (NS,R,O) Urine Bacteria Few H (NS) SARS-CoV-2 RNA (DEYSI) Negative (NEGATIVE) Result Diagrams: 06/25/21 12:25 06/25/21 12:25 Sepsis Event Note - Evaluation Sepsis Screening Result: No Definite Risk - Focused Exam Vital Signs: Vital Signs Temp Pulse Resp Pulse Ox 06/25/21 11:45 98 F 78 20 93 L - Problem List (1) COPD exacerbation SNOMED Code(s): 719199560 ICD Code: J44.1 - CHRONIC OBSTRUCTIVE PULMONARY DISEASE W (ACUTE) EXACERBATION Status: Acute Current Visit: Yes (2) Diabetes type 2, controlled SNOMED Code(s): 47205208, 864853633 ICD Code: E11.9 - TYPE 2 DIABETES MELLITUS WITHOUT COMPLICATIONS Status: Acute Current Visit: Yes Qualifiers: Diabetes mellitus [facility] insulin use: without intermediate manager use (3) VIOLET (generalized anxiety disorder) SNOMED Code(s): 65627923 ICD Code: F41.1 - GENERALIZED ANXIETY DISORDER Status: Acute Current Visit: Yes (4) CHF (congestive heart failure) SNOMED Code(s): 06988200 ICD Code: I50.9 - HEART FAILURE, UNSPECIFIED Status: Chronic Current Visit: No Qualifiers: Heart failure chronicity: unspecified Problem List Initiated/Reviewed/Updated: Yes Orders Last 24hrs: Active Orders 24 hr Category Date Time Status Admission Status [Patient Status] [ADT] Routine ADT 06/25/21 15:09 Active Accu Check [Blood Glucose Check, Bedside] [RC] TIDMEALS Care 06/25/21 17:05 Ordered Cardiac Monitoring [RC] QSHIFT Care 06/25/21 15:09 Active RT Aerosol Therapy [RC] ASDIRECTED Care 06/25/21 13:48 Active RT Aerosol Therapy [RC] ASDIRECTED Care 06/25/21 17:04 Ordered Consistent Carbohydrate Diet [DIET] Diet 06/25/21 Dinner Ordered BASIC METABOLIC PANEL,BMP [CHEM] AM Lab 06/26/21 05:11 Ordered CBC WITH AUTO DIFF [HEME] AM Lab 06/26/21 05:11 Ordered Albuterol/Ipratropium [DuoNeb 3.0-0.5 MG/3 ML] Med 06/25/21 17:15 Ordered 3 ml NEB Q4H Aspirin Med 06/26/21 09:00 Ordered 81 mg PO DAILY Citalopram Hydrobromide [Celexa] Med 06/26/21 09:00 Ordered 40 mg PO DAILY Clopidogrel [Plavix] Med 06/26/21 09:00 Ordered 75 mg PO DAILY Dextrose 50% in Water Med 06/25/21 17:05 Ordered 50 ml IVPUSH ASDIRECTED PRN Famotidine [Pepcid] Med 06/25/21 21:00 Ordered 20 mg PO BID Furosemide [Lasix] Med 06/26/21 09:00 Ordered 40 mg PO DAILY Gabapentin [Neurontin] Med 06/25/21 21:00 Ordered 600 mg PO BID Glucagon,Human Recombinant [GlucaGen] Med 06/25/21 17:05 Ordered 1 mg IM ASDIRECTED PRN Insulin Lispro [HumaLOG] Med 06/25/21 18:00 Ordered See Protocol SUBCUT TIDMEALS LORazepam [Ativan] Med 06/25/21 17:05 Ordered 0.5 mg PO DAILY PRN Levofloxacin/Dextrose 5%-Water [Levaquin in D5W 500 MG/ Med 06/25/21 17:15 Ordered 100 ML] 500 mg Premix Bag 1 bag IV Q24H Losartan [Cozaar] Med 06/26/21 09:00 Ordered 25 mg PO DAILY Montelukast [Singulair] Med 06/25/21 21:00 Ordered 10 mg PO BEDTIME Oxymetazoline [Nasal Decongestant [place]] Med 06/25/21 17:05 Ordered 1 spray NASBOTH DAILY PRN Sodium Chloride 0.9% [Saline Flush] Med 06/25/21 12:01 Active 10 ml FLUSH ASDIRECTED PRN Tamsulosin [Flomax] Med 06/25/21 21:00 Ordered 0.4 mg PO BEDTIME atorvaSTATin [Lipitor] Med 06/25/21 21:00 Ordered 40 mg PO BEDTIME busPIRone [Buspar] Med 06/25/21 21:00 Ordered 5 mg PO BID carvediloL [Coreg] Med 06/25/21 21:00 Ordered 12.5 mg PO BID metFORMIN HCl [Metformin HCl ER] Med 06/25/21 21:00 Ordered 750 mg PO BID methylPREDNISolone Sod Succ [Solu-MEDROL] Med 06/25/21 17:15 Ordered 125 mg IVPUSH Q8H Peripheral IV Insertion Pediatric [OM.PC] Routine Oth 06/25/21 12:01 Ordered EKG 12 Lead [EK] Routine Ther 06/25/21 12:01 Ordered Medication Orders Albuterol/Ipratropium (Albuterol/Ipratropium 3.0-0.5 Mg/3 Ml Neb Soln) 3 ml NEB Q4H [facility] Aspirin (Aspirin 81 Mg Tab.Chew) 81 mg PO DAILY [facility] Atorvastatin Calcium (Atorvastatin 40 Mg Tab) 40 mg PO BEDTIME [facility] Buspirone HCl (Buspirone 10 Mg Tab) 5 mg PO BID [facility] Carvedilol (Carvedilol 12.5 Mg Tab) 12.5 mg PO BID [facility] Clopidogrel Bisulfate (Clopidogrel 75 Mg Tab) 75 mg PO DAILY [facility] Dextrose/Water (50% Dextrose In Water 50 Ml Syringe) 50 ml IVPUSH ASDIRECTED PRN PRN Reason: Hypoglycemia Famotidine (Famotidine 20 Mg Tab) 20 mg PO BID [facility] Furosemide (Furosemide 40 Mg Tab) 40 mg PO DAILY [facility] Gabapentin (Gabapentin 300 Mg Cap) 600 mg PO BID [facility] Glucagon (Glucagon,Human Recombinant 1 Mg Vial) 1 mg IM ASDIRECTED PRN PRN Reason: Hypoglycemia Levofloxacin/Dextrose 500 mg/ (Premix) 100 mls @ 100 mls/hr IV Q24H [facility] Insulin Human Lispro (Insulin Lispro 100 Unit/Ml 3 Ml Kwikpen) 0 unit SUBCUT TIDMEALS ROSALIO; Protocol Lorazepam (Lorazepam 0.5 Mg Tab) 0.5 mg PO DAILY PRN PRN Reason: Anxiety Losartan Potassium (Losartan 25 Mg Tab) 25 mg PO DAILY [facility] Methylprednisolone Sodium Succinate (Methylprednisolone Sodium Succinate 125 Mg/2 Ml Sdv) 125 mg IVPUSH Q8H [facility] Montelukast Sodium (Montelukast 10 Mg Tab) 10 mg PO BEDTIME [facility] Non-Formulary Medication (Citalopram Hydrobromide [Celexa]) 40 mg PO DAILY [facility] Non-Formulary Medication (Metformin Hcl [Metformin Hcl Er]) 750 mg PO BID [facility] Oxymetazoline HCl (Oxymetazoline 0.05% Nasal [place] 30 Ml Bottle) ml NASBOTH DAILY PRN PRN Reason: Congestion Sodium Chloride (Sodium Chloride 0.9% 10 Ml Syringe) 10 ml FLUSH ASDIRECTED PRN PRN Reason: Keep Vein Open Last Admin: 06/25/21 16:40 Dose: 10 ml Documented by: Admin: 06/25/21 12:15 Dose: 10 ml Documented by: DALIA Tamsulosin HCl (Tamsulosin 0.4 Mg Cap.Er) 0.4 mg PO BEDTIME [facility] Assessment/Plan Comment:: Admit. Start continuos O2 supplementation. IV SoluMedrol, IV Levaquin for COPD exacerbation. keep tight glycemic control( SSI)
[2021-06-25] MEDS ORDERED: Albuterol/Ipratropium 3.0-0.5 MG/3 ML Neb Soln INH PRN (17:13)
[2021-06-25] MEDS: Levofloxacin/Dextrose 5%-Water 500 MG in Premix Bag 1 BAG IV SCH (17:51)
[2021-06-25] MEDS: Albuterol/Ipratropium 3.0-0.5 MG/3 ML Neb Soln NEB SCH ×2 (17:51→20:46)
[2021-06-25] MEDS ORDERED: OXYMETAZOLINE 0.05% NASBOTH PRN (17:55)
[2021-06-25] MEDS ORDERED: Insulin Lispro 100 Unit/ML 3 ML KwikPen SUBCUT ONE (18:01)
[2021-06-25] MEDS: Insulin Lispro 100 Unit/ML 3 ML KwikPen SUBCUT SCH (18:02)
[2021-06-25] MEDS: busPIRone 10 MG Tab PO SCH (20:34)
[2021-06-25] MEDS: Carvedilol 12.5 MG Tab PO SCH (20:34)
[2021-06-25] MEDS: Tamsulosin 0.4 MG Cap.ER **OWN MED PO SCH (20:35)
[2021-06-25] MEDS: atorvaSTATin 40 MG Tab PO SCH (20:36)
[2021-06-25] MEDS: METFORMIN 750 MG PO SCH (20:36)
[2021-06-25] MEDS: Famotidine 20 MG Tab **OWN MED PO SCH (20:37)
[2021-06-25] MEDS: Gabapentin 300 MG Cap PO SCH (20:45)
[2021-06-25] MEDS: methylPREDNISolone Sodium Succinate 125 MG/2 ML SDV IVPUSH SCH (22:00)
[2021-06-26] MEDS: Albuterol/Ipratropium 3.0-0.5 MG/3 ML Neb Soln NEB SCH ×6 (01:29→21:30)
[2021-06-26] MEDS: Sodium Chloride 0.9% 10 ML Syringe FLUSH PRN ×2 (05:28→13:48)
[2021-06-26] MEDS: methylPREDNISolone Sodium Succinate 125 MG/2 ML SDV IVPUSH SCH ×3 (05:28→22:30)
[2021-06-26] MEDS: busPIRone 10 MG Tab PO SCH ×2 (08:36→20:33)
[2021-06-26] MEDS: Carvedilol 12.5 MG Tab PO SCH ×2 (08:36→20:33)
[2021-06-26] MEDS: CITALOPRAM 40 MG PO SCH (08:36)
[2021-06-26] MEDS: Losartan 25 MG Tab **OWN MED PO SCH (08:37)
[2021-06-26] MEDS: METFORMIN 750 MG PO SCH ×2 (08:38→20:33)
[2021-06-26] MEDS: Furosemide 40 MG Tab **OWN MED PO SCH (08:38)
[2021-06-26] MEDS: Aspirin 81 MG Tab.EC PO SCH (08:38)
[2021-06-26] MEDS: Insulin Lispro 100 Unit/ML 3 ML KwikPen SUBCUT SCH ×3 (08:39→17:40)
[2021-06-26] MEDS: Clopidogrel 75 MG Tab **OWN MED PO SCH (08:39)
[2021-06-26] MEDS: Famotidine 20 MG Tab **OWN MED PO SCH ×2 (08:39→20:34)
[2021-06-26] MEDS: Gabapentin 300 MG Cap PO SCH ×2 (08:53→20:32)
--- NOTE | 2021-06-26 09:45 | PCM.PN ---
- General Info Date of Service: 06/26/21 Subjective Update: Yaya feels better than yesterday, still short of breath and wheezing, but does much improved. Denies fever, or chest pain. Functional Status: Reports: Pain Controlled - Review of Systems General: Reports: No Symptoms HEENT: Reports: No Symptoms Pulmonary: Reports: Shortness of Breath, Sputum, Wheezing Cardiovascular: Reports: Orthopnea Gastrointestinal: Reports: No Symptoms Genitourinary: Reports: No Symptoms - Patient Data Vitals - Most Recent: Last Vital Signs Temp 96.7 F L 06/26/21 05:36 Pulse 98 06/26/21 08:36 Resp 20 06/26/21 05:36 BP 151/83 H 06/26/21 08:37 Pulse Ox 93 L 06/26/21 05:36 Weight - Most Recent: 89.981 kg Lab Results Last 24 Hours: Laboratory Results - last 24 hr 06/25/21 06/25/21 06/25/21 Range/Units 12:25 12:25 12:25 WBC 5.1 (3.2-10.1) x10-3/uL RBC 3.98 (3.90-5.90) x10(6)uL Hgb 12.1 L (12.9-17.7) g/dL Hct 36.8 L (38.3-50.1) % MCV 92.4 (80.8-98.7) fL MCH 30.4 (27.0-33.3) pg MCHC 32.9 (28.7-35.3) g/dL RDW 14.7 (12.4-15.0) % Plt Count 157 (117-477) x10(3)uL MPV 7.1 (6.7-11.0) fL Neut % (Auto) 64.1 (40.3-71.8) % Lymph % (Auto) 22.2 (15.8-45.3) % Dougherty % (Auto) 10.3 (5.5-15.2) % Eos % (Auto) 2.5 (0.1-6.8) % Baso % (Auto) 0.9 (0.3-3.8) % Neut # (Auto) 3.3 (1.7-6.9) x10-3/uL Lymph # (Auto) 1.1 (0.5-4.5) x10-3/uL [place] # (Auto) 0.5 (0.0-1.2) x10-3/uL Eos # (Auto) 0.1 (0.0-0.6) x10-3/uL Baso # (Auto) 0.0 (0.0-0.3) x10-3/uL PT 11.0 (9.0-11.1) sec INR 1.02 (1.00-1.24) POC VBG pH (7.32-7.43) pH Units POC VBG pCO2 (41-51) mmHg POC VBG HCO3 (22-29) mmol/L VBG Base Excess (-2 - 3+) mmol/L O2 Delivery Device Oxygen Flow Rate LPM Sodium 138 (135-145) mmol/L Potassium 4.1 (3.5-5.3) mmol/L Chloride 103 (100-110) mmol/L Carbon Dioxide 31 (21-32) mmol/L BUN 16 D (7-18) mg/dL Creatinine 1.4 H (0.70-1.30) mg/dL Est Cr Clr Drug Dosing TNP Estimated GFR (MDRD) 51 L (>60) BUN/Creatinine Ratio 11.4 (9-20) Glucose 122 H D (80-116) mg/dL POC Glucose (80-116) mg/dL Calcium 8.8 (8.6-10.2) mg/dL Magnesium 1.8 (1.8-2.5) mg/dL Total Bilirubin 0.7 (0.1-1.3) mg/dL AST 15 (5-25) IU/L ALT 23 D (12-36) U/L Alkaline Phosphatase 53 L (56-112) IU/L Troponin I (4.0-60.3) pg/mL C-Reactive Protein (0.5-0.9) mg/dL NT-Pro-B Natriuret Pep (<=125) pg/mL Total Protein 6.6 (6.0-8.0) g/dL Albumin 3.7 (3.2-4.6) g/dL Globulin 2.9 g/dL Albumin/Globulin Ratio 1.3 Urine Color (YELLOW) Urine Appearance (CLEAR) Urine pH (5.0-6.5) Ur Specific [place] (1.010-1.025) Urine Protein (NEGATIVE) mg/dL Urine Glucose (UA) (NORMAL) mg/dL Urine Ketones (NEGATIVE) mg/dL Urine Occult Blood (NEGATIVE) Urine Nitrite (NEGATIVE) Urine Bilirubin (NEGATIVE) Urine Urobilinogen (NEGATIVE) mg/dL Ur Leukocyte Esterase (NEGATIVE) Urine RBC (0-5) Urine WBC (0-5) Ur Squamous Epith Cells (NS,R,O) Urine Bacteria (NS) SARS-CoV-2 RNA (DEYSI) (NEGATIVE) 06/25/21 06/25/21 06/25/21 Range/Units 12:25 12:25 12:25 WBC (3.2-10.1) x10-3/uL RBC (3.90-5.90) x10(6)uL Hgb (12.9-17.7) g/dL Hct (38.3-50.1) % MCV (80.8-98.7) fL MCH (27.0-33.3) pg MCHC (28.7-35.3) g/dL RDW (12.4-15.0) % Plt Count (117-477) x10(3)uL MPV (6.7-11.0) fL Neut % (Auto) (40.3-71.8) % Lymph % (Auto) (15.8-45.3) % Dougherty % (Auto) (5.5-15.2) % Eos % (Auto) (0.1-6.8) % Baso % (Auto) (0.3-3.8) % Neut # (Auto) (1.7-6.9) x10-3/uL Lymph # (Auto) (0.5-4.5) x10-3/uL [place] # (Auto) (0.0-1.2) x10-3/uL Eos # (Auto) (0.0-0.6) x10-3/uL Baso # (Auto) (0.0-0.3) x10-3/uL PT (9.0-11.1) sec INR (1.00-1.24) POC VBG pH (7.32-7.43) pH Units POC VBG pCO2 (41-51) mmHg POC VBG HCO3 (22-29) mmol/L VBG Base Excess (-2 - 3+) mmol/L O2 Delivery Device Oxygen Flow Rate LPM Sodium (135-145) mmol/L Potassium (3.5-5.3) mmol/L Chloride (100-110) mmol/L Carbon Dioxide (21-32) mmol/L BUN (7-18) mg/dL Creatinine (0.70-1.30) mg/dL Est Cr Clr Drug Dosing Estimated GFR (MDRD) (>60) BUN/Creatinine Ratio (9-20) Glucose (80-116) mg/dL POC Glucose (80-116) mg/dL Calcium (8.6-10.2) mg/dL Magnesium (1.8-2.5) mg/dL Total Bilirubin (0.1-1.3) mg/dL AST (5-25) IU/L ALT (12-36) U/L Alkaline Phosphatase (56-112) IU/L Troponin I 6.6 (4.0-60.3) pg/mL C-Reactive Protein < 0.2 L (0.5-0.9) mg/dL NT-Pro-B Natriuret Pep 91 (<=125) pg/mL Total Protein (6.0-8.0) g/dL Albumin (3.2-4.6) g/dL Globulin g/dL Albumin/Globulin Ratio Urine Color (YELLOW) Urine Appearance (CLEAR) Urine pH (5.0-6.5) Ur Specific [place] (1.010-1.025) Urine Protein (NEGATIVE) mg/dL Urine Glucose (UA) (NORMAL) mg/dL Urine Ketones (NEGATIVE) mg/dL Urine Occult Blood (NEGATIVE) Urine Nitrite (NEGATIVE) Urine Bilirubin (NEGATIVE) Urine Urobilinogen (NEGATIVE) mg/dL Ur Leukocyte Esterase (NEGATIVE) Urine RBC (0-5) Urine WBC (0-5) Ur Squamous Epith Cells (NS,R,O) Urine Bacteria (NS) SARS-CoV-2 RNA (DEYSI) (NEGATIVE) 06/25/21 06/25/21 06/25/21 Range/Units 12:29 12:40 14:15 WBC (3.2-10.1) x10-3/uL RBC (3.90-5.90) x10(6)uL Hgb (12.9-17.7) g/dL Hct (38.3-50.1) % MCV (80.8-98.7) fL MCH (27.0-33.3) pg MCHC (28.7-35.3) g/dL RDW (12.4-15.0) % Plt Count (117-477) x10(3)uL MPV (6.7-11.0) fL Neut % (Auto) (40.3-71.8) % Lymph % (Auto) (15.8-45.3) % Dougherty % (Auto) (5.5-15.2) % Eos % (Auto) (0.1-6.8) % Baso % (Auto) (0.3-3.8) % Neut # (Auto) (1.7-6.9) x10-3/uL Lymph # (Auto) (0.5-4.5) x10-3/uL [place] # (Auto) (0.0-1.2) x10-3/uL Eos # (Auto) (0.0-0.6) x10-3/uL Baso # (Auto) (0.0-0.3) x10-3/uL PT (9.0-11.1) sec INR (1.00-1.24) POC VBG pH 7.37 (7.32-7.43) pH Units POC VBG pCO2 51 (41-51) mmHg POC VBG HCO3 30 H (22-29) mmol/L VBG Base Excess 4 H (-2 - 3+) mmol/L O2 Delivery Device Nasal cannula Oxygen Flow Rate 2 LPM Sodium (135-145) mmol/L Potassium (3.5-5.3) mmol/L Chloride (100-110) mmol/L Carbon Dioxide (21-32) mmol/L BUN (7-18) mg/dL Creatinine (0.70-1.30) mg/dL Est Cr Clr Drug Dosing Estimated GFR (MDRD) (>60) BUN/Creatinine Ratio (9-20) Glucose (80-116) mg/dL POC Glucose (80-116) mg/dL Calcium (8.6-10.2) mg/dL Magnesium (1.8-2.5) mg/dL Total Bilirubin (0.1-1.3) mg/dL AST (5-25) IU/L ALT (12-36) U/L Alkaline Phosphatase (56-112) IU/L Troponin I (4.0-60.3) pg/mL C-Reactive Protein (0.5-0.9) mg/dL NT-Pro-B Natriuret Pep (<=125) pg/mL Total Protein (6.0-8.0) g/dL Albumin (3.2-4.6) g/dL Globulin g/dL Albumin/Globulin Ratio Urine Color Yellow (YELLOW) Urine Appearance Clear (CLEAR) Urine pH 7.0 H (5.0-6.5) Ur Specific [place] 1.005 L (1.010-1.025) Urine Protein Negative (NEGATIVE) mg/dL Urine Glucose (UA) Normal (NORMAL) mg/dL Urine Ketones Negative (NEGATIVE) mg/dL Urine Occult Blood Negative (NEGATIVE) Urine Nitrite Negative (NEGATIVE) Urine Bilirubin Negative (NEGATIVE) Urine Urobilinogen Normal (NEGATIVE) mg/dL Ur Leukocyte Esterase Negative (NEGATIVE) Urine RBC Not seen (0-5) Urine WBC 0-5 (0-5) Ur Squamous Epith Cells Few H (NS,R,O) Urine Bacteria Few H (NS) SARS-CoV-2 RNA (DEYSI) Negative (NEGATIVE) 06/25/21 06/26/21 06/26/21 Range/Units 17:59 05:55 05:55 WBC 6.9 (3.2-10.1) x10-3/uL RBC 4.30 (3.90-5.90) x10(6)uL Hgb 13.0 (12.9-17.7) g/dL Hct 39.7 (38.3-50.1) % MCV 92.3 (80.8-98.7) fL MCH 30.2 (27.0-33.3) pg MCHC 32.7 (28.7-35.3) g/dL RDW 14.5 (12.4-15.0) % Plt Count 168 (117-477) x10(3)uL MPV 7.4 (6.7-11.0) fL Neut % (Auto) 88.9 H (40.3-71.8) % Lymph % (Auto) 9.9 L (15.8-45.3) % Dougherty % (Auto) 1.1 L (5.5-15.2) % Eos % (Auto) 0.0 L (0.1-6.8) % Baso % (Auto) 0.1 L (0.3-3.8) % Neut # (Auto) 6.1 (1.7-6.9) x10-3/uL Lymph # (Auto) 0.7 (0.5-4.5) x10-3/uL Dougherty # (Auto) 0.1 (0.0-1.2) x10-3/uL Eos # (Auto) 0.0 (0.0-0.6) x10-3/uL Baso # (Auto) 0.0 (0.0-0.3) x10-3/uL PT (9.0-11.1) sec INR (1.00-1.24) POC VBG pH (7.32-7.43) pH Units POC VBG pCO2 (41-51) mmHg POC VBG HCO3 (22-29) mmol/L VBG Base Excess (-2 - 3+) mmol/L O2 Delivery Device Oxygen Flow Rate LPM Sodium 139 (135-145) mmol/L Potassium 4.3 (3.5-5.3) mmol/L Chloride 101 (100-110) mmol/L Carbon Dioxide 32 (21-32) mmol/L BUN 23 H (7-18) mg/dL Creatinine 1.4 H (0.70-1.30) mg/dL Est Cr Clr Drug Dosing 45.76 Estimated GFR (MDRD) 51 L (>60) BUN/Creatinine Ratio 16.4 (9-20) Glucose 213 H D (80-116) mg/dL POC Glucose 203 H (80-116) mg/dL Calcium 9.2 (8.6-10.2) mg/dL Magnesium (1.8-2.5) mg/dL Total Bilirubin (0.1-1.3) mg/dL AST (5-25) IU/L ALT (12-36) U/L Alkaline Phosphatase (56-112) IU/L Troponin I (4.0-60.3) pg/mL C-Reactive Protein (0.5-0.9) mg/dL NT-Pro-B Natriuret Pep (<=125) pg/mL Total Protein (6.0-8.0) g/dL Albumin (3.2-4.6) g/dL Globulin g/dL Albumin/Globulin Ratio Urine Color (YELLOW) Urine Appearance (CLEAR) Urine pH (5.0-6.5) Ur Specific [place] (1.010-1.025) Urine Protein (NEGATIVE) mg/dL Urine Glucose (UA) (NORMAL) mg/dL Urine Ketones (NEGATIVE) mg/dL Urine Occult Blood (NEGATIVE) Urine Nitrite (NEGATIVE) Urine Bilirubin (NEGATIVE) Urine Urobilinogen (NEGATIVE) mg/dL Ur Leukocyte Esterase (NEGATIVE) Urine RBC (0-5) Urine WBC (0-5) Ur Squamous Epith Cells (NS,R,O) Urine Bacteria (NS) SARS-CoV-2 RNA (DEYSI) (NEGATIVE) Med Orders - Current: Current Medications Albuterol/Ipratropium (Albuterol/Ipratropium 3.0-0.5 Mg/3 Ml Neb Soln) 3 ml NEB Q4H [facility] Last Admin: 06/26/21 09:21 Dose: 3 ml Documented by: Albuterol/Ipratropium (Albuterol/Ipratropium 3.0-0.5 Mg/3 Ml Neb Soln) 3 ml INH Q2H PRN PRN Reason: Shortness of Breath Aspirin (Aspirin 81 Mg Tab.Ec) 81 mg PO DAILY [facility] Last Admin: 06/26/21 08:38 Dose: 81 mg Documented by: Atorvastatin Calcium (Atorvastatin 40 Mg Tab) 40 mg PO BEDTIME [facility] Last Admin: 06/25/21 20:36 Dose: 40 mg Documented by: Buspirone HCl (Buspirone 10 Mg Tab) 5 mg PO BID [facility] Last Admin: 06/26/21 08:36 Dose: 5 mg Documented by: Carvedilol (Carvedilol 12.5 Mg Tab) 12.5 mg PO BID [facility] Last Admin: 06/26/21 08:36 Dose: 12.5 mg Documented by: Clopidogrel Bisulfate (Clopidogrel 75 Mg Tab Own Med) 75 mg PO DAILY [facility] Last Admin: 06/26/21 08:39 Dose: 75 mg Documented by: Dextrose/Water (50% Dextrose In Water 50 Ml Syringe) 50 ml IVPUSH ASDIRECTED PRN PRN Reason: Hypoglycemia Famotidine (Famotidine 20 Mg Tab Own Med) 20 mg PO BID [facility] Last Admin: 06/26/21 08:39 Dose: 20 mg Documented by: Furosemide (Furosemide 40 Mg Tab Own Med) 40 mg PO DAILY [facility] Last Admin: 06/26/21 08:38 Dose: 40 mg Documented by: Gabapentin (Gabapentin 300 Mg Cap) 600 mg PO BID [facility] Last Admin: 06/26/21 08:53 Dose: 600 mg Documented by: Glucagon (Glucagon,Human Recombinant 1 Mg Vial) 1 mg IM ASDIRECTED PRN PRN Reason: Hypoglycemia Levofloxacin/Dextrose 500 mg/ (Premix) 100 mls @ 100 mls/hr IV Q24H [facility] Last Admin: 06/25/21 17:51 Dose: 100 mls/hr Documented by: Insulin Human Lispro (Insulin Lispro 100 Unit/Ml 3 Ml Kwikpen) 0 unit SUBCUT TIDMEALS [facility]; Protocol Last Admin: 06/26/21 08:39 Dose: 6 units Documented by: Lorazepam (Lorazepam 0.5 Mg Tab) 0.5 mg PO DAILY PRN PRN Reason: Anxiety Last Admin: 06/25/21 20:46 Dose: 0.5 mg Documented by: Losartan Potassium (Losartan 25 Mg Tab Own Med) 25 mg PO DAILY [facility] Last Admin: 06/26/21 08:37 Dose: 25 mg Documented by: Methylprednisolone Sodium Succinate (Methylprednisolone Sodium Succinate 125 Mg/2 Ml Sdv) 125 mg IVPUSH Q8H [facility] Last Admin: 06/26/21 05:28 Dose: 125 mg Documented by: Montelukast Sodium (Montelukast 10 Mg Tab Own Med) 10 mg PO BEDTIME [facility] Last Admin: 06/25/21 20:37 Dose: 10 mg Documented by: Citalopram 40 Mg (Own Med) 0 mg PO DAILY [facility] Last Admin: 06/26/21 08:36 Dose: 40 mg Documented by: Metformin 750 Mg Er (Own Med) 0 mg PO BID [facility] Last Admin: 06/26/21 08:38 Dose: 750 mg Documented by: Oxymetazoline HCl (Oxymetazoline 0.05% Nasal [place] 30 Ml Bottle Own Med) 0 ml NASBOTH DAILY PRN PRN Reason: Congestion Sodium Chloride (Sodium Chloride 0.9% 10 Ml Syringe) 10 ml FLUSH ASDIRECTED PRN PRN Reason: Keep Vein Open Last Admin: 06/26/21 05:28 Dose: 10 ml Documented by: Tamsulosin HCl (Tamsulosin 0.4 Mg Cap.Er Own Med) 0.4 mg PO BEDTIME [facility] Last Admin: 06/25/21 20:35 Dose: 0.4 mg Documented by: Discontinued Medications Albuterol/Ipratropium (Albuterol/Ipratropium 3.0-0.5 Mg/3 Ml Neb Soln) 3 ml NEB ONETIME ONE Stop: 06/25/21 13:48 Last Admin: 06/25/21 14:05 Dose: 3 ml Documented by: Ceftriaxone Sodium (Ceftriaxone 1 Gm Vial) 1 gm IVPUSH ONETIME ONE Stop: 06/25/21 15:13 Last Admin: 06/25/21 16:40 Dose: 1 gm Documented by: Furosemide (Furosemide 40 Mg/4 Ml Vial) 40 mg IVPUSH NOW ONE Stop: 06/25/21 15:10 Last Admin: 06/25/21 16:40 Dose: 40 mg Documented by: Lorazepam (Lorazepam 1 Mg Tab) 1 mg PO ONETIME ONE Stop: 06/25/21 12:30 Last Admin: 06/25/21 12:40 Dose: 1 mg Documented by: Methylprednisolone Sodium Succinate (Methylprednisolone Sodium Succinate 125 Mg/2 Ml Sdv) 125 mg IVPUSH ONETIME ONE Stop: 06/25/21 13:48 Last Admin: 06/25/21 14:00 Dose: 125 mg Documented by: Oxymetazoline HCl (Oxymetazoline 0.05% Nasal [place] 30 Ml Bottle) 0 ml NASBOTH DAILY PRN PRN Reason: Congestion - Exam Quality Assessment: Supplemental Oxygen General: Alert HEENT: Pupils Equal Neck: Supple Extremities: Normal Inspection, Normal Range of Motion Skin: Warm Neurological: No New Focal Deficit Psy/Mental Status: Alert, Normal Affect - Patient Data Lab Results Last 24 hrs: Laboratory Results - last 24 hr 06/25/21 06/25/21 06/25/21 Range/Units 12:25 12:25 12:25 WBC 5.1 (3.2-10.1) x10-3/uL RBC 3.98 (3.90-5.90) x10(6)uL Hgb 12.1 L (12.9-17.7) g/dL Hct 36.8 L (38.3-50.1) % MCV 92.4 (80.8-98.7) fL MCH 30.4 (27.0-33.3) pg MCHC 32.9 (28.7-35.3) g/dL RDW 14.7 (12.4-15.0) % Plt Count 157 (117-477) x10(3)uL MPV 7.1 (6.7-11.0) fL Neut % (Auto) 64.1 (40.3-71.8) % Lymph % (Auto) 22.2 (15.8-45.3) % Dougherty % (Auto) 10.3 (5.5-15.2) % Eos % (Auto) 2.5 (0.1-6.8) % Baso % (Auto) 0.9 (0.3-3.8) % Neut # (Auto) 3.3 (1.7-6.9) x10-3/uL Lymph # (Auto) 1.1 (0.5-4.5) x10-3/uL Dougherty # (Auto) 0.5 (0.0-1.2) x10-3/uL Eos # (Auto) 0.1 (0.0-0.6) x10-3/uL Baso # (Auto) 0.0 (0.0-0.3) x10-3/uL PT 11.0 (9.0-11.1) sec INR 1.02 (1.00-1.24) POC VBG pH (7.32-7.43) pH Units POC VBG pCO2 (41-51) mmHg POC VBG HCO3 (22-29) mmol/L VBG Base Excess (-2 - 3+) mmol/L O2 Delivery Device Oxygen Flow Rate LPM Sodium 138 (135-145) mmol/L Potassium 4.1 (3.5-5.3) mmol/L Chloride 103 (100-110) mmol/L Carbon Dioxide 31 (21-32) mmol/L BUN 16 D (7-18) mg/dL Creatinine 1.4 H (0.70-1.30) mg/dL Est Cr Clr Drug Dosing TNP Estimated GFR (MDRD) 51 L (>60) BUN/Creatinine Ratio 11.4 (9-20) Glucose 122 H D (80-116) mg/dL POC Glucose (80-116) mg/dL Calcium 8.8 (8.6-10.2) mg/dL Magnesium 1.8 (1.8-2.5) mg/dL Total Bilirubin 0.7 (0.1-1.3) mg/dL AST 15 (5-25) IU/L ALT 23 D (12-36) U/L Alkaline Phosphatase 53 L (56-112) IU/L Troponin I (4.0-60.3) pg/mL C-Reactive Protein (0.5-0.9) mg/dL NT-Pro-B Natriuret Pep (<=125) pg/mL Total Protein 6.6 (6.0-8.0) g/dL Albumin 3.7 (3.2-4.6) g/dL Globulin 2.9 g/dL Albumin/Globulin Ratio 1.3 Urine Color (YELLOW) Urine Appearance (CLEAR) Urine pH (5.0-6.5) Ur Specific [place] (1.010-1.025) Urine Protein (NEGATIVE) mg/dL Urine Glucose (UA) (NORMAL) mg/dL Urine Ketones (NEGATIVE) mg/dL Urine Occult Blood (NEGATIVE) Urine Nitrite (NEGATIVE) Urine Bilirubin (NEGATIVE) Urine Urobilinogen (NEGATIVE) mg/dL Ur Leukocyte Esterase (NEGATIVE) Urine RBC (0-5) Urine WBC (0-5) Ur Squamous Epith Cells (NS,R,O) Urine Bacteria (NS) SARS-CoV-2 RNA (DEYSI) (NEGATIVE) 06/25/21 06/25/21 06/25/21 Range/Units 12:25 12:25 12:25 WBC (3.2-10.1) x10-3/uL RBC (3.90-5.90) x10(6)uL Hgb (12.9-17.7) g/dL Hct (38.3-50.1) % MCV (80.8-98.7) fL MCH (27.0-33.3) pg MCHC (28.7-35.3) g/dL RDW (12.4-15.0) % Plt Count (117-477) x10(3)uL MPV (6.7-11.0) fL Neut % (Auto) (40.3-71.8) % Lymph % (Auto) (15.8-45.3) % [place] % (Auto) (5.5-15.2) % Eos % (Auto) (0.1-6.8) % Baso % (Auto) (0.3-3.8) % Neut # (Auto) (1.7-6.9) x10-3/uL Lymph # (Auto) (0.5-4.5) x10-3/uL [place] # (Auto) (0.0-1.2) x10-3/uL Eos # (Auto) (0.0-0.6) x10-3/uL Baso # (Auto) (0.0-0.3) x10-3/uL PT (9.0-11.1) sec INR (1.00-1.24) POC VBG pH (7.32-7.43) pH Units POC VBG pCO2 (41-51) mmHg POC VBG HCO3 (22-29) mmol/L VBG Base Excess (-2 - 3+) mmol/L O2 Delivery Device Oxygen Flow Rate LPM Sodium (135-145) mmol/L Potassium (3.5-5.3) mmol/L Chloride (100-110) mmol/L Carbon Dioxide (21-32) mmol/L BUN (7-18) mg/dL Creatinine (0.70-1.30) mg/dL Est Cr Clr Drug Dosing Estimated GFR (MDRD) (>60) BUN/Creatinine Ratio (9-20) Glucose (80-116) mg/dL POC Glucose (80-116) mg/dL Calcium (8.6-10.2) mg/dL Magnesium (1.8-2.5) mg/dL Total Bilirubin (0.1-1.3) mg/dL AST (5-25) IU/L ALT (12-36) U/L Alkaline Phosphatase (56-112) IU/L Troponin I 6.6 (4.0-60.3) pg/mL C-Reactive Protein < 0.2 L (0.5-0.9) mg/dL NT-Pro-B Natriuret Pep 91 (<=125) pg/mL Total Protein (6.0-8.0) g/dL Albumin (3.2-4.6) g/dL Globulin g/dL Albumin/Globulin Ratio Urine Color (YELLOW) Urine Appearance (CLEAR) Urine pH (5.0-6.5) Ur Specific [place] (1.010-1.025) Urine Protein (NEGATIVE) mg/dL Urine Glucose (UA) (NORMAL) mg/dL Urine Ketones (NEGATIVE) mg/dL Urine Occult Blood (NEGATIVE) Urine Nitrite (NEGATIVE) Urine Bilirubin (NEGATIVE) Urine Urobilinogen (NEGATIVE) mg/dL Ur Leukocyte Esterase (NEGATIVE) Urine RBC (0-5) Urine WBC (0-5) Ur Squamous Epith Cells (NS,R,O) Urine Bacteria (NS) SARS-CoV-2 RNA (DEYSI) (NEGATIVE) 06/25/21 06/25/21 06/25/21 Range/Units 12:29 12:40 14:15 WBC (3.2-10.1) x10-3/uL RBC (3.90-5.90) x10(6)uL Hgb (12.9-17.7) g/dL Hct (38.3-50.1) % MCV (80.8-98.7) fL MCH (27.0-33.3) pg MCHC (28.7-35.3) g/dL RDW (12.4-15.0) % Plt Count (117-477) x10(3)uL MPV (6.7-11.0) fL Neut % (Auto) (40.3-71.8) % Lymph % (Auto) (15.8-45.3) % [place] % (Auto) (5.5-15.2) % Eos % (Auto) (0.1-6.8) % Baso % (Auto) (0.3-3.8) % Neut # (Auto) (1.7-6.9) x10-3/uL Lymph # (Auto) (0.5-4.5) x10-3/uL Dougherty # (Auto) (0.0-1.2) x10-3/uL Eos # (Auto) (0.0-0.6) x10-3/uL Baso # (Auto) (0.0-0.3) x10-3/uL PT (9.0-11.1) sec INR (1.00-1.24) POC VBG pH 7.37 (7.32-7.43) pH Units POC VBG pCO2 51 (41-51) mmHg POC VBG HCO3 30 H (22-29) mmol/L VBG Base Excess 4 H (-2 - 3+) mmol/L O2 Delivery Device Nasal cannula Oxygen Flow Rate 2 LPM Sodium (135-145) mmol/L Potassium (3.5-5.3) mmol/L Chloride (100-110) mmol/L Carbon Dioxide (21-32) mmol/L BUN (7-18) mg/dL Creatinine (0.70-1.30) mg/dL Est Cr Clr Drug Dosing Estimated GFR (MDRD) (>60) BUN/Creatinine Ratio (9-20) Glucose (80-116) mg/dL POC Glucose (80-116) mg/dL Calcium (8.6-10.2) mg/dL Magnesium (1.8-2.5) mg/dL Total Bilirubin (0.1-1.3) mg/dL AST (5-25) IU/L ALT (12-36) U/L Alkaline Phosphatase (56-112) IU/L Troponin I (4.0-60.3) pg/mL C-Reactive Protein (0.5-0.9) mg/dL NT-Pro-B Natriuret Pep (<=125) pg/mL Total Protein (6.0-8.0) g/dL Albumin (3.2-4.6) g/dL Globulin g/dL Albumin/Globulin Ratio Urine Color Yellow (YELLOW) Urine Appearance Clear (CLEAR) Urine pH 7.0 H (5.0-6.5) Ur Specific [place] 1.005 L (1.010-1.025) Urine Protein Negative (NEGATIVE) mg/dL Urine Glucose (UA) Normal (NORMAL) mg/dL Urine Ketones Negative (NEGATIVE) mg/dL Urine Occult Blood Negative (NEGATIVE) Urine Nitrite Negative (NEGATIVE) Urine Bilirubin Negative (NEGATIVE) Urine Urobilinogen Normal (NEGATIVE) mg/dL Ur Leukocyte Esterase Negative (NEGATIVE) Urine RBC Not seen (0-5) Urine WBC 0-5 (0-5) Ur Squamous Epith Cells Few H (NS,R,O) Urine Bacteria Few H (NS) SARS-CoV-2 RNA (DEYSI) Negative (NEGATIVE) 06/25/21 06/26/21 06/26/21 Range/Units 17:59 05:55 05:55 WBC 6.9 (3.2-10.1) x10-3/uL RBC 4.30 (3.90-5.90) x10(6)uL Hgb 13.0 (12.9-17.7) g/dL Hct 39.7 (38.3-50.1) % MCV 92.3 (80.8-98.7) fL MCH 30.2 (27.0-33.3) pg MCHC 32.7 (28.7-35.3) g/dL RDW 14.5 (12.4-15.0) % Plt Count 168 (117-477) x10(3)uL MPV 7.4 (6.7-11.0) fL Neut % (Auto) 88.9 H (40.3-71.8) % Lymph % (Auto) 9.9 L (15.8-45.3) % Dougherty % (Auto) 1.1 L (5.5-15.2) % Eos % (Auto) 0.0 L (0.1-6.8) % Baso % (Auto) 0.1 L (0.3-3.8) % Neut # (Auto) 6.1 (1.7-6.9) x10-3/uL Lymph # (Auto) 0.7 (0.5-4.5) x10-3/uL [place] # (Auto) 0.1 (0.0-1.2) x10-3/uL Eos # (Auto) 0.0 (0.0-0.6) x10-3/uL Baso # (Auto) 0.0 (0.0-0.3) x10-3/uL PT (9.0-11.1) sec INR (1.00-1.24) POC VBG pH (7.32-7.43) pH Units POC VBG pCO2 (41-51) mmHg POC VBG HCO3 (22-29) mmol/L VBG Base Excess (-2 - 3+) mmol/L O2 Delivery Device Oxygen Flow Rate LPM Sodium 139 (135-145) mmol/L Potassium 4.3 (3.5-5.3) mmol/L Chloride 101 (100-110) mmol/L Carbon Dioxide 32 (21-32) mmol/L BUN 23 H (7-18) mg/dL Creatinine 1.4 H (0.70-1.30) mg/dL Est Cr Clr Drug Dosing 45.76 Estimated GFR (MDRD) 51 L (>60) BUN/Creatinine Ratio 16.4 (9-20) Glucose 213 H D (80-116) mg/dL POC Glucose 203 H (80-116) mg/dL Calcium 9.2 (8.6-10.2) mg/dL Magnesium (1.8-2.5) mg/dL Total Bilirubin (0.1-1.3) mg/dL AST (5-25) IU/L ALT (12-36) U/L Alkaline Phosphatase (56-112) IU/L Troponin I (4.0-60.3) pg/mL C-Reactive Protein (0.5-0.9) mg/dL NT-Pro-B Natriuret Pep (<=125) pg/mL Total Protein (6.0-8.0) g/dL Albumin (3.2-4.6) g/dL Globulin g/dL Albumin/Globulin Ratio Urine Color (YELLOW) Urine Appearance (CLEAR) Urine pH (5.0-6.5) Ur Specific [place] (1.010-1.025) Urine Protein (NEGATIVE) mg/dL Urine Glucose (UA) (NORMAL) mg/dL Urine Ketones (NEGATIVE) mg/dL Urine Occult Blood (NEGATIVE) Urine Nitrite (NEGATIVE) Urine Bilirubin (NEGATIVE) Urine Urobilinogen (NEGATIVE) mg/dL Ur Leukocyte Esterase (NEGATIVE) Urine RBC (0-5) Urine WBC (0-5) Ur Squamous Epith Cells (NS,R,O) Urine Bacteria (NS) SARS-CoV-2 RNA (DEYSI) (NEGATIVE) Result Diagrams: 06/26/21 05:55 06/26/21 05:55 Sepsis Event Note - Evaluation Sepsis Screening Result: No Definite Risk - Focused Exam Vital Signs: Vital Signs Temp Pulse Pulse Resp BP BP Pulse Ox 06/26/21 08:37 151/83 H 06/26/21 08:36 98 151/83 H 06/26/21 05:36 96.7 F L 94 20 175/89 H 93 L 06/26/21 01:40 80 06/26/21 01:00 96.1 F L 83 20 176/88 H 93 L - Problem List & Annotations (1) COPD exacerbation SNOMED Code(s): 180321301 Code(s): J44.1 - CHRONIC OBSTRUCTIVE PULMONARY DISEASE W (ACUTE) EXACERBATION Status: Acute Current Visit: Yes (2) Diabetes type 2, controlled SNOMED Code(s): 47176672, 793530123 Code(s): E11.9 - TYPE 2 DIABETES MELLITUS WITHOUT COMPLICATIONS Status: Acute Current Visit: Yes Qualifiers: Diabetes mellitus technician terminal and repeater insulin use: without fci use (3) VIOLET (generalized anxiety disorder) SNOMED Code(s): 82920361 Code(s): F41.1 - GENERALIZED ANXIETY DISORDER Status: Acute Current Visit: Yes (4) CHF (congestive heart failure) SNOMED Code(s): 38904095 Code(s): I50.9 - HEART FAILURE, UNSPECIFIED Status: Chronic Current Visit: No Qualifiers: Heart failure chronicity: unspecified - Problem List Review Problem List Initiated/Reviewed/Updated: Yes - My Orders Last 24 Hours: My Active Orders 06/25/21 17:05 Accu Check [Blood Glucose Check, Bedside] [RC] TIDMEALS Dextrose 50% in Water 50 ml IVPUSH ASDIRECTED PRN Glucagon,Human Recombinant [GlucaGen] 1 mg IM ASDIRECTED PRN LORazepam [Ativan] 0.5 mg PO DAILY PRN 06/25/21 17:13 Albuterol/Ipratropium [DuoNeb 3.0-0.5 MG/3 ML] 3 ml INH Q2H PRN 06/25/21 17:15 Albuterol/Ipratropium [DuoNeb 3.0-0.5 MG/3 ML] 3 ml NEB Q4H Levofloxacin/Dextrose 5%-Water [Levaquin in D5W 500 MG/100 ML] 500 mg Premix Bag 1 bag IV Q24H 06/25/21 17:55 Oxymetazoline [Nasal Decongestant [place]] 0 ml NASBOTH DAILY PRN 06/25/21 18:00 Insulin Lispro [HumaLOG] See Protocol SUBCUT TIDMEALS 06/25/21 21:00 Famotidine [Pepcid] 20 mg PO BID Gabapentin [Neurontin] 600 mg PO BID Montelukast [Singulair] 10 mg PO BEDTIME Tamsulosin [Flomax] 0.4 mg PO BEDTIME atorvaSTATin [Lipitor] 40 mg PO BEDTIME busPIRone [Buspar] 5 mg PO BID carvediloL [Coreg] 12.5 mg PO BID metFORMIN HCl [Metformin HCl ER] 0 mg PO BID 06/25/21 22:00 methylPREDNISolone Sod Succ [Solu-MEDROL] 125 mg IVPUSH Q8H 06/26/21 09:00 Aspirin [Halfprin] 81 mg PO DAILY Citalopram Hydrobromide [Celexa] 0 mg PO DAILY Clopidogrel [Plavix] 75 mg PO DAILY Furosemide [Lasix] 40 mg PO DAILY Losartan [Cozaar] 25 mg PO DAILY 06/26/21 09:43 Incentive Spirometry [RT Incentive Spirometry] [RC] Q4HWA 06/27/21 05:11 BASIC METABOLIC PANEL,BMP [CHEM] AM CBC WITH AUTO DIFF [HEME] AM PRO B-TYPE NATRIUR PEPT,BNPPRO [CHEM] Routine - Plan Plan:: Continue current treatment, encourage incentive spirometry. May discharge in 1-2 days.
[2021-06-26] MEDS: LORazepam 0.5 MG Tab PO PRN ×2 (11:24→21:34)
[2021-06-26] MEDS: Levofloxacin/Dextrose 5%-Water 500 MG in Premix Bag 1 BAG IV SCH (16:41)
[2021-06-26] MEDS: Tamsulosin 0.4 MG Cap.ER **OWN MED PO SCH (20:33)
[2021-06-26] MEDS: atorvaSTATin 40 MG Tab PO SCH (20:33)
[2021-06-27] MEDS: Albuterol/Ipratropium 3.0-0.5 MG/3 ML Neb Soln NEB SCH ×6 (02:13→21:30)
[2021-06-27] MEDS: methylPREDNISolone Sodium Succinate 125 MG/2 ML SDV IVPUSH SCH ×3 (05:40→21:49)
[2021-06-27] MEDS: Insulin Lispro 100 Unit/ML 3 ML KwikPen SUBCUT SCH ×3 (07:47→18:18)
[2021-06-27] MEDS: Carvedilol 12.5 MG Tab PO SCH ×2 (08:44→20:51)
[2021-06-27] MEDS: CITALOPRAM 40 MG PO SCH (08:44)
[2021-06-27] MEDS: busPIRone 10 MG Tab PO SCH ×2 (08:44→20:51)
[2021-06-27] MEDS: Losartan 25 MG Tab **OWN MED PO SCH (08:45)
[2021-06-27] MEDS: Aspirin 81 MG Tab.EC PO SCH (08:45)
[2021-06-27] MEDS: Famotidine 20 MG Tab **OWN MED PO SCH ×2 (08:46→20:54)
[2021-06-27] MEDS: Gabapentin 300 MG Cap PO SCH ×2 (08:46→21:00)
[2021-06-27] MEDS: METFORMIN 750 MG PO SCH ×2 (08:46→20:54)
[2021-06-27] MEDS: Furosemide 40 MG Tab **OWN MED PO SCH (08:46)
[2021-06-27] MEDS: Clopidogrel 75 MG Tab **OWN MED PO SCH (08:47)
--- NOTE | 2021-06-27 09:14 | PCM.PN ---
- General Info Date of Service: 06/27/21 Subjective Update: Yaya feels better than yesterday, still short of breath and wheezing, but does much improved. Denies fever, or chest pain.Anxiety before showers,but well controlled on Lorazepam Functional Status: Reports: Pain Controlled, Tolerating Diet, Ambulating - Review of Systems HEENT: Reports: No Symptoms Pulmonary: Reports: Cough Cardiovascular: Reports: No Symptoms Gastrointestinal: Reports: No Symptoms Genitourinary: Reports: No Symptoms - Patient Data Vitals - Most Recent: Last Vital Signs Temp 97.6 F 06/27/21 07:53 Pulse 74 06/27/21 08:44 Resp 18 06/27/21 07:53 BP 147/83 H 06/27/21 08:45 Pulse Ox 94 L 06/27/21 07:53 Weight - Most Recent: 89.981 kg I&O - Last 24 Hours: Intake & Output 06/26/21 06/27/21 06/27/21 22:59 06:59 14:59 Intake Total 100 Balance 100 Lab Results Last 24 Hours: Laboratory Results - last 24 hr 06/26/21 06/26/21 06/27/21 Range/Units 11:47 16:52 06:30 WBC 10.3 H (3.2-10.1) x10-3/uL RBC 4.06 (3.90-5.90) x10(6)uL Hgb 12.6 L (12.9-17.7) g/dL Hct 37.4 L (38.3-50.1) % MCV 92.1 (80.8-98.7) fL MCH 31.0 (27.0-33.3) pg MCHC 33.6 (28.7-35.3) g/dL RDW 14.4 (12.4-15.0) % Plt Count 179 (117-477) x10(3)uL MPV 7.6 (6.7-11.0) fL Add Manual Diff Yes Neutrophils % (Manual) 92 H (46-82) % Band Neutrophils % 1 (0-6) % Lymphocytes % (Manual) 5 L (13-37) % Monocytes % (Manual) 2 L (4-12) % Sodium (135-145) mmol/L Potassium (3.5-5.3) mmol/L Chloride (100-110) mmol/L Carbon Dioxide (21-32) mmol/L BUN (7-18) mg/dL Creatinine (0.70-1.30) mg/dL Est Cr Clr Drug Dosing mL/min Estimated GFR (MDRD) (>60) BUN/Creatinine Ratio (9-20) Glucose (80-116) mg/dL POC Glucose 215 H 252 H (80-116) mg/dL Calcium (8.6-10.2) mg/dL NT-Pro-B Natriuret Pep (<=125) pg/mL 06/27/21 06/27/21 Range/Units 06:30 06:30 WBC (3.2-10.1) x10-3/uL RBC (3.90-5.90) x10(6)uL Hgb (12.9-17.7) g/dL Hct (38.3-50.1) % MCV (80.8-98.7) fL MCH (27.0-33.3) pg MCHC (28.7-35.3) g/dL RDW (12.4-15.0) % Plt Count (117-477) x10(3)uL MPV (6.7-11.0) fL Add Manual Diff Neutrophils % (Manual) (46-82) % Band Neutrophils % (0-6) % Lymphocytes % (Manual) (13-37) % Monocytes % (Manual) (4-12) % Sodium 136 (135-145) mmol/L Potassium 4.0 (3.5-5.3) mmol/L Chloride 98 L (100-110) mmol/L Carbon Dioxide 29 (21-32) mmol/L BUN 30 H (7-18) mg/dL Creatinine 1.5 H (0.70-1.30) mg/dL Est Cr Clr Drug Dosing 42.71 mL/min Estimated GFR (MDRD) 47 L (>60) BUN/Creatinine Ratio 20.0 (9-20) Glucose 238 H (80-116) mg/dL POC Glucose (80-116) mg/dL Calcium 8.7 (8.6-10.2) mg/dL NT-Pro-B Natriuret Pep 295 H (<=125) pg/mL Med Orders - Current: Current Medications Albuterol/Ipratropium (Albuterol/Ipratropium 3.0-0.5 Mg/3 Ml Neb Soln) 3 ml NEB Q4H [facility] Last Admin: 06/27/21 09:05 Dose: 3 ml Documented by: Albuterol/Ipratropium (Albuterol/Ipratropium 3.0-0.5 Mg/3 Ml Neb Soln) 3 ml INH Q2H PRN PRN Reason: Shortness of Breath Aspirin (Aspirin 81 Mg Tab.Ec) 81 mg PO DAILY [facility] Last Admin: 06/27/21 08:45 Dose: 81 mg Documented by: Atorvastatin Calcium (Atorvastatin 40 Mg Tab) 40 mg PO BEDTIME [facility] Last Admin: 06/26/21 20:33 Dose: 40 mg Documented by: Buspirone HCl (Buspirone 10 Mg Tab) 5 mg PO BID [facility] Last Admin: 06/27/21 08:44 Dose: 5 mg Documented by: Carvedilol (Carvedilol 12.5 Mg Tab) 12.5 mg PO BID [facility] Last Admin: 06/27/21 08:44 Dose: 12.5 mg Documented by: Clopidogrel Bisulfate (Clopidogrel 75 Mg Tab Own Med) 75 mg PO DAILY [facility] Last Admin: 06/27/21 08:47 Dose: 75 mg Documented by: Dextrose/Water (50% Dextrose In Water 50 Ml Syringe) 50 ml IVPUSH ASDIRECTED PRN PRN Reason: Hypoglycemia Famotidine (Famotidine 20 Mg Tab Own Med) 20 mg PO BID [facility] Last Admin: 06/27/21 08:46 Dose: 20 mg Documented by: Furosemide (Furosemide 40 Mg Tab Own Med) 40 mg PO DAILY [facility] Last Admin: 06/27/21 08:46 Dose: 40 mg Documented by: Gabapentin (Gabapentin 300 Mg Cap) 600 mg PO BID [facility] Last Admin: 06/27/21 08:46 Dose: 600 mg Documented by: Glucagon (Glucagon,Human Recombinant 1 Mg Vial) 1 mg IM ASDIRECTED PRN PRN Reason: Hypoglycemia Levofloxacin/Dextrose 500 mg/ (Premix) 100 mls @ 100 mls/hr IV Q24H [facility] Last Admin: 06/26/21 16:41 Dose: 100 mls/hr Documented by: Insulin Human Lispro (Insulin Lispro 100 Unit/Ml 3 Ml Kwikpen) 0 unit SUBCUT TIDMEALS [facility]; Protocol Last Admin: 06/27/21 07:47 Dose: 6 units Documented by: Lorazepam (Lorazepam 0.5 Mg Tab) 0.25 mg PO BID PRN PRN Reason: Anxiety Last Admin: 06/26/21 21:34 Dose: 0.25 mg Documented by: Losartan Potassium (Losartan 25 Mg Tab Own Med) 25 mg PO DAILY [facility] Last Admin: 06/27/21 08:45 Dose: 25 mg Documented by: Methylprednisolone Sodium Succinate (Methylprednisolone Sodium Succinate 125 Mg/2 Ml Sdv) 125 mg IVPUSH Q8H [facility] Last Admin: 06/27/21 05:40 Dose: 125 mg Documented by: Montelukast Sodium (Montelukast 10 Mg Tab Own Med) 10 mg PO BEDTIME [facility] Last Admin: 06/26/21 20:34 Dose: 10 mg Documented by: Citalopram 40 Mg (Own Med) 0 mg PO DAILY [facility] Last Admin: 06/27/21 08:44 Dose: 40 mg Documented by: Metformin 750 Mg Er (Own Med) 0 mg PO BID [facility] Last Admin: 06/27/21 08:46 Dose: 238 mg Documented by: Oxymetazoline HCl (Oxymetazoline 0.05% Nasal [place] 30 Ml Bottle Own Med) 0 ml NASBOTH DAILY PRN PRN Reason: Congestion Sodium Chloride (Sodium Chloride 0.9% 10 Ml Syringe) 10 ml FLUSH ASDIRECTED PRN PRN Reason: Keep Vein Open Last Admin: 06/26/21 13:48 Dose: 10 ml Documented by: Tamsulosin HCl (Tamsulosin 0.4 Mg Cap.Er Own Med) 0.4 mg PO BEDTIME [facility] Last Admin: 06/26/21 20:33 Dose: 0.4 mg Documented by: Discontinued Medications Albuterol/Ipratropium (Albuterol/Ipratropium 3.0-0.5 Mg/3 Ml Neb Soln) 3 ml NEB ONETIME ONE Stop: 06/25/21 13:48 Last Admin: 06/25/21 14:05 Dose: 3 ml Documented by: Ceftriaxone Sodium (Ceftriaxone 1 Gm Vial) 1 gm IVPUSH ONETIME ONE Stop: 06/25/21 15:13 Last Admin: 06/25/21 16:40 Dose: 1 gm Documented by: Furosemide (Furosemide 40 Mg/4 Ml Vial) 40 mg IVPUSH NOW ONE Stop: 06/25/21 15:10 Last Admin: 06/25/21 16:40 Dose: 40 mg Documented by: Lorazepam (Lorazepam 1 Mg Tab) 1 mg PO ONETIME ONE Stop: 06/25/21 12:30 Last Admin: 06/25/21 12:40 Dose: 1 mg Documented by: Lorazepam (Lorazepam 0.5 Mg Tab) 0.5 mg PO DAILY PRN PRN Reason: Anxiety Last Admin: 06/25/21 20:46 Dose: 0.5 mg Documented by: Methylprednisolone Sodium Succinate (Methylprednisolone Sodium Succinate 125 Mg/2 Ml Sdv) 125 mg IVPUSH ONETIME ONE Stop: 06/25/21 13:48 Last Admin: 06/25/21 14:00 Dose: 125 mg Documented by: Oxymetazoline HCl (Oxymetazoline 0.05% Nasal [place] 30 Ml Bottle) 0 ml NASBOTH DAILY PRN PRN Reason: Congestion - Exam General: Alert, Oriented Neck: Supple Lungs: Rhonchi Cardiovascular: Regular Rate GI/Abdominal Exam: Normal Bowel Sounds Neurological: No New Focal Deficit Psy/Mental Status: Alert, Normal Affect - Patient Data Lab Results Last 24 hrs: Laboratory Results - last 24 hr 06/26/21 06/26/21 06/27/21 Range/Units 11:47 16:52 06:30 WBC 10.3 H (3.2-10.1) x10-3/uL RBC 4.06 (3.90-5.90) x10(6)uL Hgb 12.6 L (12.9-17.7) g/dL Hct 37.4 L (38.3-50.1) % MCV 92.1 (80.8-98.7) fL MCH 31.0 (27.0-33.3) pg MCHC 33.6 (28.7-35.3) g/dL RDW 14.4 (12.4-15.0) % Plt Count 179 (117-477) x10(3)uL MPV 7.6 (6.7-11.0) fL Add Manual Diff Yes Neutrophils % (Manual) 92 H (46-82) % Band Neutrophils % 1 (0-6) % Lymphocytes % (Manual) 5 L (13-37) % Monocytes % (Manual) 2 L (4-12) % Sodium (135-145) mmol/L Potassium (3.5-5.3) mmol/L Chloride (100-110) mmol/L Carbon Dioxide (21-32) mmol/L BUN (7-18) mg/dL Creatinine (0.70-1.30) mg/dL Est Cr Clr Drug Dosing mL/min Estimated GFR (MDRD) (>60) BUN/Creatinine Ratio (9-20) Glucose (80-116) mg/dL POC Glucose 215 H 252 H (80-116) mg/dL Calcium (8.6-10.2) mg/dL NT-Pro-B Natriuret Pep (<=125) pg/mL 06/27/21 06/27/21 Range/Units 06:30 06:30 WBC (3.2-10.1) x10-3/uL RBC (3.90-5.90) x10(6)uL Hgb (12.9-17.7) g/dL Hct (38.3-50.1) % MCV (80.8-98.7) fL MCH (27.0-33.3) pg MCHC (28.7-35.3) g/dL RDW (12.4-15.0) % Plt Count (117-477) x10(3)uL MPV (6.7-11.0) fL Add Manual Diff Neutrophils % (Manual) (46-82) % Band Neutrophils % (0-6) % Lymphocytes % (Manual) (13-37) % Monocytes % (Manual) (4-12) % Sodium 136 (135-145) mmol/L Potassium 4.0 (3.5-5.3) mmol/L Chloride 98 L (100-110) mmol/L Carbon Dioxide 29 (21-32) mmol/L BUN 30 H (7-18) mg/dL Creatinine 1.5 H (0.70-1.30) mg/dL Est Cr Clr Drug Dosing 42.71 mL/min Estimated GFR (MDRD) 47 L (>60) BUN/Creatinine Ratio 20.0 (9-20) Glucose 238 H (80-116) mg/dL POC Glucose (80-116) mg/dL Calcium 8.7 (8.6-10.2) mg/dL NT-Pro-B Natriuret Pep 295 H (<=125) pg/mL Result Diagrams: 06/27/21 06:30 06/27/21 06:30 Sepsis Event Note - Evaluation Sepsis Screening Result: No Definite Risk - Focused Exam Vital Signs: Vital Signs Temp Pulse Pulse Resp BP BP Pulse Ox 06/27/21 08:45 147/83 H 06/27/21 08:44 74 147/83 H 06/27/21 07:53 97.6 F 74 18 147/83 H 94 L 06/27/21 02:30 98.0 F 86 12 149/85 H 92 L 06/27/21 02:20 88 06/26/21 21:45 80 - Problem List & Annotations (1) COPD exacerbation SNOMED Code(s): 587228876 Code(s): J44.1 - CHRONIC OBSTRUCTIVE PULMONARY DISEASE W (ACUTE) EXACERBATION Status: Acute Current Visit: Yes (2) Diabetes type 2, controlled SNOMED Code(s): 94127803, 211394299 Code(s): E11.9 - TYPE 2 DIABETES MELLITUS WITHOUT COMPLICATIONS Status: Acute Current Visit: Yes Qualifiers: Diabetes mellitus rodent exterminator insulin use: without rodent exterminator use (3) VIOLET (generalized anxiety disorder) SNOMED Code(s): 90486579 Code(s): F41.1 - GENERALIZED ANXIETY DISORDER Status: Acute Current Visit: Yes (4) CHF (congestive heart failure) SNOMED Code(s): 98759813 Code(s): I50.9 - HEART FAILURE, UNSPECIFIED Status: Chronic Current Visit: No Qualifiers: Heart failure chronicity: unspecified - Problem List Review Problem List Initiated/Reviewed/Updated: Yes - My Orders Last 24 Hours: My Active Orders 06/26/21 09:00 Aspirin [Halfprin] 81 mg PO DAILY Citalopram Hydrobromide [Celexa] 0 mg PO DAILY Clopidogrel [Plavix] 75 mg PO DAILY Furosemide [Lasix] 40 mg PO DAILY Losartan [Cozaar] 25 mg PO DAILY 06/26/21 09:43 Incentive Spirometry [RT Incentive Spirometry] [RC] Q4HWA 06/26/21 09:53 Code Status [Resuscitation Status] Routine 06/26/21 10:39 LORazepam [Ativan] 0.25 mg PO BID PRN - Plan Plan:: Continue current treatment(parenteral antibiotics,steroid therapy) & encourage incentive spirometry. May discharge tomorrow.
[2021-06-27] MEDS: Sodium Chloride 0.9% 10 ML Syringe FLUSH PRN ×3 (13:22→21:49)
[2021-06-27] MEDS: Levofloxacin/Dextrose 5%-Water 500 MG in Premix Bag 1 BAG IV SCH (17:10)
[2021-06-27] MEDS: Tamsulosin 0.4 MG Cap.ER **OWN MED PO SCH (20:53)
[2021-06-27] MEDS: atorvaSTATin 40 MG Tab PO SCH (20:54)
[2021-06-27] MEDS: LORazepam 0.5 MG Tab PO PRN (21:49)
[2021-06-28] MEDS: Albuterol/Ipratropium 3.0-0.5 MG/3 ML Neb Soln NEB SCH ×3 (01:12→09:43)
[2021-06-28] MEDS: methylPREDNISolone Sodium Succinate 125 MG/2 ML SDV IVPUSH SCH (05:43)
[2021-06-28] MEDS: Sodium Chloride 0.9% 10 ML Syringe FLUSH PRN (05:45)
[2021-06-28] MEDS: Insulin Lispro 100 Unit/ML 3 ML KwikPen SUBCUT SCH (09:33)
[2021-06-28] MEDS: CITALOPRAM 40 MG PO SCH (09:36)
[2021-06-28] MEDS: busPIRone 10 MG Tab PO SCH (09:36)
[2021-06-28] MEDS: Carvedilol 12.5 MG Tab PO SCH (09:37)
[2021-06-28] MEDS: Losartan 25 MG Tab **OWN MED PO SCH (09:37)
[2021-06-28] MEDS: Aspirin 81 MG Tab.EC PO SCH (09:38)
[2021-06-28] MEDS: Furosemide 40 MG Tab **OWN MED PO SCH (09:38)
[2021-06-28] MEDS: METFORMIN 750 MG PO SCH (09:38)
[2021-06-28] MEDS: Famotidine 20 MG Tab **OWN MED PO SCH (09:39)
[2021-06-28] MEDS: Clopidogrel 75 MG Tab **OWN MED PO SCH (09:39)
[2021-06-28] MEDS: Gabapentin 300 MG Cap PO SCH (09:43)
--- NOTE | 2021-06-28 22:53 | DISCH ---
DISCHARGE DATE: 06/28/2021 REASON FOR ADMISSION: Chronic obstructive pulmonary disease exacerbation. DISCHARGE DIAGNOSIS: Chronic obstructive pulmonary disease exacerbation. SECONDARY DIAGNOSES: 1. Type 2 diabetes. 2. Generalized anxiety disorder. 3. History of congestive heart failure. BRIEF HISTORY: This is a 65-year-old male, previous smoker, who presented to the ER with cough, wheezing, shortness of breath. COVID was negative. Chest x- ray was unremarkable. He was diagnosed with COPD exacerbation and asthma and admitted. He was given IV Solu-Medrol, DuoNeb, and Levaquin. Symptoms have improved enough to go home. He will be discharged on prednisone 10 mg b.i.d. for 5 days and Levaquin 500 mg p.o. daily for 7 more days. He will see his PCP in the next 1 week. /[id number] DAVID/JAYMIE
== END 2021-06-28 10:10 | disposition home or self-care (01) ==
LOC: FB.ED 11:44 → SUPCPDRO 11:44 → FB.MS 15:23 → UNDOADMOB 15:23 → FB.MS 06-26 18:40
PROVIDERS: ADMIT Family Medicine; ATTEND Family Medicine
DX: J44.1 Chronic obstructive pulmonary disease with (acute) exacerbation (principal); F41.1 Generalized anxiety disorder; I50.9 Heart failure, unspecified; E11.9 Type 2 diabetes mellitus without complications; I25.10 Atherosclerotic heart disease of native coronary artery without angina pectoris; I11.0 Hypertensive heart disease with heart failure; Z87.891 Personal history of nicotine dependence; Z79.899 Other long term (current) drug therapy; Z79.82 Long term (current) use of aspirin; E78.00 Pure hypercholesterolemia, unspecified; Z98.890 Other specified postprocedural states; Z20.822 Contact with and (suspected) exposure to COVID-19
CPT/HCPCS: 36410; 36415; 71045; 80048; 80053; 81001; 82947; 83735; 83880; 84484; 85025; 85610; 86140; 93005; 94150; 94640; 96365; 96366; 96374; 96375; 96376; 99285-25; A9270-GY; G0378; J0696; J1815; J1940; J1956; J2930; J7620-GY; U0002

== ENCOUNTER 2021-07-28 13:45 | Emergency (ER) | payer MEDICARE ==
[2021-07-28] MEDS ORDERED: Sodium Chloride 0.9% 10 ML Syringe FLUSH PRN (14:00)
[2021-07-28] MEDS ORDERED: Furosemide 40 MG/4 ML VIAL IVPUSH ONE (14:05)
[2021-07-28] MEDS ORDERED: Albuterol/Ipratropium 3.0-0.5 MG/3 ML Neb Soln NEB STA (14:05)
[2021-07-28] MEDS ORDERED: Metolazone 2.5 MG Tab PO STA (14:05)
[2021-07-28] MEDS ORDERED: methylPREDNISolone Sodium Succinate 40 MG/1 ML SDV IVPUSH STA (14:06)
--- NOTE | 2021-07-28 15:52 | EDM.PDOC ---
ED HPI GENERAL MEDICAL PROBLEM - General Chief Complaint: Cardiovascular Problem Stated Complaint: general Time Seen by Provider: 07/28/21 14:15 Source of Information: Reports: Patient History Limitations: Reports: No Limitations - History of Present Illness INITIAL COMMENTS - FREE TEXT/NARRATIVE: Patient presented to the ED because of bilateral llower extremity edema, dry cough and dyspnea. There is no fever, chills, cold symptoms. There is no chest pain, palpitations. He has a history of CHF and COPD and is taking laix 40 mg daily. He used his neb treatment today without significant relief. Bilateral Leg Pain Score (Numeric/FACES): 8 Upper Back Pain Score (Numeric/FACES): 6 - Related Data Allergies Allergy/AdvReac Type Severity Reaction Status Date / Time No Known Allergies Allergy Verified 06/25/21 12:00 Home Meds: Home Meds Albuterol Sulfate [Albuterol Sulfate Hfa] 2 inh INH Q4H PRN 02/18/21 [History] Albuterol/Ipratropium [DuoNeb 3.0-0.5 MG/3 ML] 3 ml INH Q4H PRN 02/18/21 [History] Aspirin 81 mg PO DAILY 02/18/21 [History] Clopidogrel [Plavix] 75 mg PO DAILY 02/18/21 [History] Famotidine 20 mg PO BID 02/18/21 [History] Gabapentin [Neurontin] 600 mg PO BID 02/18/21 [History] LORazepam [Lorazepam] 0.5 mg PO DAILY PRN 02/18/21 [History] Losartan [Cozaar] 25 mg PO DAILY 02/18/21 [History] Montelukast [Singulair] 10 mg PO BEDTIME 02/18/21 [History] Tamsulosin [Flomax] 0.4 mg PO BEDTIME 02/18/21 [History] atorvaSTATin [Lipitor] 40 mg PO BEDTIME 02/18/21 [History] carvediloL [Carvedilol] 12.5 mg PO BID 02/18/21 [History] metFORMIN HCl [Metformin HCl ER] 750 mg PO BID 02/18/21 [History] Citalopram Hydrobromide [Celexa] 40 mg PO DAILY 03/25/21 [History] Furosemide [Lasix] 40 mg PO DAILY #30 tablet 03/28/21 [Rx] Oxymetazoline [Afrin Original 0.05% Nasal [place]] 1 spray NASBOTH DAILY PRN 06/25/21 [History] busPIRone [Buspar] 5 mg PO BID 06/25/21 [History] Levofloxacin [Levaquin] 500 mg PO DAILY #7 tablet 06/28/21 [Rx] predniSONE [Prednisone] 20 mg PO BID #10 tablet 06/28/21 [Rx] metOLazone [Zaroxolyn] 2.5 mg PO DAILY #3 tab 07/28/21 [Rx] predniSONE [Prednisone] 40 mg PO DAILY #10 tablet 07/28/21 [Rx] Past Medical History HEENT History: Reports: Cataract Cardiovascular History: Reports: CAD, Heart Failure, High Cholesterol, Hypertension, PVD Respiratory History: Reports: Asthma, COPD, SOB Gastrointestinal History: Reports: None Genitourinary History: Reports: None Musculoskeletal History: Reports: Arthritis Psychiatric History: Reports: Anxiety Endocrine/Metabolic History: Reports: Diabetes, Type I Immunologic History: Reports: None Oncologic (Cancer) History: Reports: None - Infectious Disease History Infectious Disease History: Reports: None - Past Surgical History Head Surgeries/Procedures: Reports: None HEENT Surgical History: Reports: Cataract Surgery Cardiovascular Surgical History: Reports: Carotid Stents, Vascular Surgery Oncologic Surgical History: Reports: None Social & Family History - Family History Family Medical History: No Pertinent Family History - Caffeine Use Caffeine Use: Reports: Coffee - Living Situation & Occupation Living situation: Reports: Occupation: Retired ED ROS GENERAL - Review of Systems Review Of Systems: See Below Constitutional: Reports: No Symptoms HEENT: Reports: No Symptoms Respiratory: Reports: Shortness of Breath, Wheezing, Cough Cardiovascular: Reports: No Symptoms Endocrine: Reports: No Symptoms GI/Abdominal: Reports: No Symptoms, Abdominal Pain, Anorexia : Reports: No Symptoms Musculoskeletal: Reports: No Symptoms, Neck Pain, Shoulder Pain Skin: Reports: No Symptoms Neurological: Reports: No Symptoms, Confusion Psychiatric: Reports: No Symptoms Hematologic/Lymphatic: Reports: No Symptoms Immunologic: Reports: No Symptoms ED EXAM, GENERAL - Physical Exam Exam: See Below Exam Limited By: No Limitations General Appearance: Alert, No Apparent Distress Eye Exam: Bilateral Eye: PERRL Ears: Normal External Exam, Normal Canal Nose: Normal Inspection, Normal Mucosa, No Blood Throat/Mouth: Normal Inspection, Normal Lips, Normal Teeth, Normal Oropharynx, Normal Voice Head: Atraumatic, Normocephalic Neck: Normal Inspection, Supple, Non-Tender, Full Range of Motion Respiratory/Chest: Decreased Breath Sounds, Rhonchi, Wheezing Cardiovascular: Normal Peripheral Pulses, Regular Rate, Rhythm, No JVD GI/Abdominal: Normal Bowel Sounds, Soft, Non-Tender, No Organomegaly Back Exam: Normal Inspection, Full Range of Motion Extremities: Normal Inspection, Normal Range of Motion, Pedal Edema, Joint Swelling Neurological: Alert, Oriented, CN II-XII Intact, Normal Cognition, Normal Gait, Normal Reflexes, No Motor/Sensory Deficits Psychiatric: Normal Affect Skin Exam: Warm #1 Interpretation EKG Date: 07/28/21 Time: 09:28 Rhythm: NSR Rate (Beats/Min): 66 [place]: LAD-Left [place] Deviation P-Wave: Present QRS: Normal ST-T: Normal QT: Normal LA/PQ Interval: 199 Comparison: No Change EKG Interpretation Comments: NSR LAD LAFB Course - Vital Signs Text/Narrative:: Lab/EKG/CXR result was reviewed and discussed with patient Lasix 40 mg IV x1 Zaroxolyn 2.5 mg PO x1 Duoneb x1 Solumedrol 40 mg IV x1 Last Recorded V/S: Last Vital Signs Temp 36.3 C 07/28/21 14:00 Pulse 65 07/28/21 14:00 Resp 22 H 07/28/21 14:00 BP 156/82 H 07/28/21 14:00 Pulse Ox 96 07/28/21 14:00 - Orders/Labs/Meds Orders: Active Orders 24 hr Category Date Time Status Saline Lock Insert [OM.PC] Routine Oth 07/28/21 14:00 Ordered EKG 12 Lead [EK] Routine Ther 07/28/21 14:00 Ordered Labs: Laboratory Tests 07/28/21 07/28/21 07/28/21 Range/Units 14:20 14:20 14:20 WBC 4.8 (3.2-10.1) x10-3/uL RBC 3.95 (3.90-5.90) x10(6)uL Hgb 12.0 L (12.9-17.7) g/dL Hct 36.6 L (38.3-50.1) % MCV 92.6 (80.8-98.7) fL MCH 30.2 (27.0-33.3) pg MCHC 32.7 (28.7-35.3) g/dL RDW 14.5 (12.4-15.0) % Plt Count 201 (117-477) x10(3)uL MPV 6.7 (6.7-11.0) fL Neut % (Auto) 60.8 (40.3-71.8) % Lymph % (Auto) 19.8 (15.8-45.3) % [place] % (Auto) 11.0 (5.5-15.2) % Eos % (Auto) 7.3 H (0.1-6.8) % Baso % (Auto) 1.1 (0.3-3.8) % Neut # (Auto) 2.9 (1.7-6.9) x10-3/uL Lymph # (Auto) 1.0 (0.5-4.5) x10-3/uL [place] # (Auto) 0.5 (0.0-1.2) x10-3/uL Eos # (Auto) 0.4 (0.0-0.6) x10-3/uL Baso # (Auto) 0.1 (0.0-0.3) x10-3/uL Sodium 142 (135-145) mmol/L Potassium 5.3 D (3.5-5.3) mmol/L Chloride 103 D (100-110) mmol/L Carbon Dioxide 35 H (21-32) mmol/L BUN 16 D (7-18) mg/dL Creatinine 1.4 H (0.70-1.30) mg/dL Est Cr Clr Drug Dosing TNP Estimated GFR (MDRD) 51 L (>60) BUN/Creatinine Ratio 11.4 (9-20) Glucose 137 H D (80-116) mg/dL Calcium 9.2 (8.6-10.2) mg/dL Total Bilirubin 0.4 (0.1-1.3) mg/dL AST 18 D (5-25) IU/L ALT 23 (12-36) U/L Alkaline Phosphatase 58 (56-112) IU/L Troponin I 5.8 (4.0-60.3) pg/mL NT-Pro-B Natriuret Pep 166 H (<=125) pg/mL Total Protein 6.8 (6.0-8.0) g/dL Albumin 3.6 (3.2-4.6) g/dL Globulin 3.2 g/dL Albumin/Globulin Ratio 1.1 Meds: Medications Discontinued Medications Generic Name Dose Route Start Last Admin Trade Name Freq PRN Reason Stop Dose Admin Albuterol/Ipratropium 3 ml 07/28/21 14:05 07/28/21 14:17 Albuterol/Ipratropium 3.0-0.5 Mg/3 Ml Neb Soln NEB 07/28/21 14:06 3 ml NOW STA Administration Furosemide 40 mg 07/28/21 14:05 07/28/21 14:17 Furosemide 40 Mg/4 Ml Vial IVPUSH 07/28/21 14:06 40 mg NOW ONE Administration Methylprednisolone Sodium Succinate 40 mg 07/28/21 14:06 07/28/21 14:17 Methylprednisolone Sodium Succinate 40 Mg/1 Ml Sdv IVPUSH 07/28/21 14:07 40 mg NOW STA Administration Metolazone 2.5 mg 07/28/21 14:05 07/28/21 14:17 Metolazone 2.5 Mg Tab PO 07/28/21 14:06 2.5 mg NOW STA Administration Sodium Chloride 10 ml 07/28/21 14:00 Sodium Chloride 0.9% 10 Ml Syringe FLUSH ASDIRECTED PRN Keep Vein Open Departure - Departure Time of Disposition: 16:00 Disposition: Home, Self-Care 01 Condition: Good Clinical Impression: COPD (chronic obstructive pulmonary disease), CHF (congestive heart failure) Prescriptions: predniSONE [Prednisone] 40 mg PO DAILY #10 tablet metOLazone [Zaroxolyn] 2.5 mg PO DAILY #3 tab Instructions: Chronic Obstructive Pulmonary Disease Exacerbation, [id number], Heart Failure, Self-Care, [id number], Chronic Obstructive Pulmonary Disease, [id number], Heart Failure, Diagnosis, [id number] Referrals: Gold Jama MD [Primary Care Provider] - Forms: ED Department Discharge Additional Instructions: Please read discharge instructions on COPD and CHF Take your lasix/furosemide twice daily for 3 days instead of once daily Zaroxolyn 2.5 mg daily for 3 days Prednisone 40 mg daily for 5 days Follow up this week Sepsis Event Note (ED) - Evaluation Sepsis Screening Result: No Definite Risk - My Orders Last 24 Hours: My Active Orders 07/28/21 14:00 Saline Lock Insert [OM.PC] Routine EKG 12 Lead [EK] Routine - Assessment/Plan Last 24 Hours: My Active Orders 07/28/21 14:00 Saline Lock Insert [OM.PC] Routine EKG 12 Lead [EK] Routine
--- NOTE | 2021-07-28 18:01 | CR ---
INDICATION: Cough, dyspnea. CHEST, ONE VIEW: AP upright portable view of the chest, 07/28/21, was compared with 06/27/21 and 03/25/21. The heart appears slightly enlarged, The upper lung field pulmonary vasculature is more prominent than on the previous study, suggesting CHF. There is some faint infiltration suggested in the right midlung field and possibly at the lung bases, which could be on the basis of unusual pulmonary edema-alveolar lung edema, although superimposed pneumonia cannot be excluded. The lungs appear to be somewhat hyperaerated. Report was called to Dr. Diallo at approximately 1550 hours. [facility]
== END 2021-07-28 16:15 | disposition home or self-care (01) ==
LOC: FB.ED 13:45
DX: J44.9 Chronic obstructive pulmonary disease, unspecified (principal); I11.0 Hypertensive heart disease with heart failure; I50.9 Heart failure, unspecified; E10.9 Type 1 diabetes mellitus without complications; Z79.899 Other long term (current) drug therapy
CPT/HCPCS: 36415; 71045; 80053; 83880; 84484; 85025; 93005; 96374; 96375; 99285; A9270; J1940; J2920; J7620-GY

== ENCOUNTER 2021-08-27 07:48 | Inpatient (IN) | payer MEDICARE ==
[2021-08-27] MEDS ORDERED: Albuterol/Ipratropium 3.0-0.5 MG/3 ML Neb Soln ONE (08:01)
[2021-08-27] MEDS ORDERED: Albuterol/Ipratropium 3.0-0.5 MG/3 ML Neb Soln NEB ONE (08:06)
[2021-08-27] MEDS ORDERED: Albuterol 0.083% 2.5 MG/3 ML Neb Soln NEB ONE (08:06)
[2021-08-27] MEDS ORDERED: methylPREDNISolone Sodium Succinate 125 MG/2 ML SDV IVPUSH ONE (08:07)
[2021-08-27] MEDS: Sodium Chloride 0.9% 10 ML Syringe FLUSH PRN ×2 (08:15→11:00)
[2021-08-27 09:02] LABS: BASE EXCESS VENOUS,POC 2 mmol/L (-2 - 3+); PCO2 VENOUS,POC 57 mmHg (41-51); PH VENOUS,POC 7.32 pH Units (7.32-7.43)
[2021-08-27] MEDS ORDERED: cefTRIAXone 1 GM in Sodium Chloride 0.9% 50 ML IV SCH (10:00)
[2021-08-27] MEDS ORDERED: cefTRIAXone 1 GM Vial IVPUSH SCH (10:00)
[2021-08-27] MEDS ORDERED: Azithromycin 500 MG in Sodium Chloride 0.9% 250 ML IV SCH (10:00)
[2021-08-27] MEDS: Furosemide 40 MG Tab PO SCH (10:51)
[2021-08-27] MEDS: Famotidine 20 MG Tab PO SCH ×2 (10:52→20:55)
[2021-08-27] MEDS: Metolazone 2.5 MG Tab PO SCH (10:54)
[2021-08-27] MEDS: busPIRone 5 MG Tab PO SCH ×2 (10:54→20:52)
[2021-08-27] MEDS: Aspirin 81 MG Tab.Chew PO SCH (10:54)
[2021-08-27] MEDS: Clopidogrel 75 MG Tab PO SCH (10:54)
[2021-08-27] MEDS: Carvedilol 12.5 MG Tab PO SCH ×2 (10:55→20:53)
[2021-08-27] MEDS: Losartan 25 MG Tab PO SCH (10:55)
[2021-08-27] MEDS: Citalopram 20 MG Tab PO SCH (10:55)
[2021-08-27] MEDS: Nicotine 14 MG/24 Hr Patch TRDERM SCH (10:56)
[2021-08-27] MEDS: Gabapentin 600 MG Tab PO SCH ×2 (11:07→20:58)
[2021-08-27] MEDS: Albuterol/Ipratropium 3.0-0.5 MG/3 ML Neb Soln INH PRN ×4 (12:32→21:35)
[2021-08-27] MEDS: Enoxaparin 40 MG/0.4 ML Syringe SUBCUT SCH (17:17)
[2021-08-27] MEDS: Tamsulosin 0.4 MG Cap.ER PO SCH (20:53)
[2021-08-27] MEDS: atorvaSTATin 40 MG Tab PO SCH (20:54)
[2021-08-27] MEDS: Montelukast 10 MG Tab PO SCH (20:55)
[2021-08-27] MEDS: LORazepam 0.5 MG Tab PO PRN (21:10)
[2021-08-28] MEDS: Albuterol/Ipratropium 3.0-0.5 MG/3 ML Neb Soln INH PRN ×8 (00:24→20:33)
[2021-08-28 07:05] LABS: BASE EXCESS VENOUS,POC 9 mmol/L (-2 - 3+); PCO2 VENOUS,POC 63 mmHg (41-51); PH VENOUS,POC 7.37 pH Units (7.32-7.43)
[2021-08-28] MEDS: Sodium Chloride 0.9% 10 ML Syringe FLUSH PRN (07:44)
[2021-08-28] MEDS: predniSONE 20 MG Tab PO SCH (08:01)
[2021-08-28] MEDS: Gabapentin 600 MG Tab PO SCH ×2 (08:01→20:34)
[2021-08-28] MEDS: busPIRone 5 MG Tab PO SCH ×2 (08:01→20:34)
[2021-08-28] MEDS: Metolazone 2.5 MG Tab PO SCH (08:01)
[2021-08-28] MEDS: Aspirin 81 MG Tab.Chew PO SCH (08:01)
[2021-08-28] MEDS: Citalopram 20 MG Tab PO SCH (08:02)
[2021-08-28] MEDS: Famotidine 20 MG Tab PO SCH ×2 (08:02→20:35)
[2021-08-28] MEDS: Carvedilol 12.5 MG Tab PO SCH ×2 (08:02→20:38)
[2021-08-28] MEDS: Furosemide 40 MG Tab PO SCH (08:02)
[2021-08-28] MEDS: Losartan 25 MG Tab PO SCH (08:02)
[2021-08-28] MEDS: Clopidogrel 75 MG Tab PO SCH (08:06)
[2021-08-28] MEDS ORDERED: Furosemide 40 MG/4 ML VIAL IVPUSH ONE (08:48)
[2021-08-28] MEDS: Amoxicillin/Clavulanate K 875-125 MG Tab PO SCH ×2 (09:27→20:34)
[2021-08-28] MEDS: Azithromycin 500 MG Tab PO SCH (09:27)
[2021-08-28] MEDS: LORazepam 0.5 MG Tab PO PRN (10:47)
[2021-08-28] MEDS: Nicotine 14 MG/24 Hr Patch TRDERM SCH (10:48)
[2021-08-28] MEDS: Enoxaparin 40 MG/0.4 ML Syringe SUBCUT SCH (15:03)
[2021-08-28] MEDS: Montelukast 10 MG Tab PO SCH (20:34)
[2021-08-28] MEDS: Tamsulosin 0.4 MG Cap.ER PO SCH (20:35)
[2021-08-28] MEDS: atorvaSTATin 40 MG Tab PO SCH (20:35)
[2021-08-29] MEDS: Albuterol/Ipratropium 3.0-0.5 MG/3 ML Neb Soln INH PRN ×6 (00:20→20:33)
[2021-08-29 05:26] LABS: BASE EXCESS VENOUS,POC 13 mmol/L (-2 - 3+); PCO2 VENOUS,POC 69 mmHg (41-51); PH VENOUS,POC 7.38 pH Units (7.32-7.43)
[2021-08-29] MEDS: predniSONE 20 MG Tab PO SCH (08:00)
[2021-08-29] MEDS: Carvedilol 12.5 MG Tab PO SCH ×2 (08:01→20:39)
[2021-08-29] MEDS: Metolazone 2.5 MG Tab PO SCH (08:01)
[2021-08-29] MEDS: Citalopram 20 MG Tab PO SCH (08:02)
[2021-08-29] MEDS: Losartan 25 MG Tab PO SCH (08:02)
[2021-08-29] MEDS: busPIRone 5 MG Tab PO SCH ×2 (08:02→20:38)
[2021-08-29] MEDS: Furosemide 40 MG Tab PO SCH (08:03)
[2021-08-29] MEDS: Aspirin 81 MG Tab.Chew PO SCH (08:03)
[2021-08-29] MEDS: Gabapentin 600 MG Tab PO SCH ×2 (08:10→20:39)
[2021-08-29] MEDS: Amoxicillin/Clavulanate K 875-125 MG Tab PO SCH (08:13)
[2021-08-29] MEDS: Famotidine 20 MG Tab PO SCH ×2 (08:13→20:39)
[2021-08-29] MEDS: Clopidogrel 75 MG Tab PO SCH (08:13)
[2021-08-29] MEDS: Azithromycin 500 MG Tab PO SCH (08:14)
[2021-08-29] MEDS: Nicotine 14 MG/24 Hr Patch TRDERM SCH (11:03)
[2021-08-29] MEDS: Codeine/guaiFENesin 10-100 MG/5 ML Syrup 5 ML Cup PO PRN (11:41)
[2021-08-29] MEDS ORDERED: Iopamidol 755 Mg/ML 100 ML Bottle IV ONE (13:22)
[2021-08-29] MEDS: Enoxaparin 40 MG/0.4 ML Syringe SUBCUT SCH (14:58)
[2021-08-29] MEDS: methylPREDNISolone Sodium Succinate 125 MG/2 ML SDV IVPUSH SCH (15:42)
[2021-08-29] MEDS: Sodium Chloride 0.9% 10 ML Syringe FLUSH PRN (15:50)
[2021-08-29] MEDS ORDERED: 50% Dextrose in Water 50 ML Syringe IVPUSH PRN ×2 (17:21→21:19)
[2021-08-29] MEDS ORDERED: Glucagon,Human Recombinant 1 MG Vial IM PRN ×2 (17:21→21:19)
[2021-08-29] MEDS ORDERED: Insulin Lispro 100 Unit/ML 3 ML KwikPen SUBCUT ONE ×3 (17:43→21:21)
[2021-08-29] MEDS: Benzonatate 100 MG Cap PO SCH ×2 (17:51→20:38)
[2021-08-29] MEDS: Insulin Lispro 100 Unit/ML 3 ML KwikPen SUBCUT SCH (18:50)
[2021-08-29] MEDS: Montelukast 10 MG Tab PO SCH (20:38)
[2021-08-29] MEDS: atorvaSTATin 40 MG Tab PO SCH (20:38)
[2021-08-29] MEDS: Tamsulosin 0.4 MG Cap.ER PO SCH (20:39)
[2021-08-29] MEDS ORDERED: Insulin Glargine,Hum.Rec.Anlog 100 UNIT/ML 3 ML Pen SUBCUT SCH (21:00)
[2021-08-29] MEDS ORDERED: Insulin Glargine,Hum.Rec.Anlog 100 UNIT/ML 3 ML Pen SUBCUT ONE (21:10)
[2021-08-29] MEDS: LORazepam 0.5 MG Tab PO PRN (22:15)
[2021-08-30] MEDS: methylPREDNISolone Sodium Succinate 125 MG/2 ML SDV IVPUSH SCH ×3 (00:20→15:01)
[2021-08-30] MEDS: Sodium Chloride 0.9% 10 ML Syringe FLUSH PRN (00:23)
[2021-08-30] MEDS: Codeine/guaiFENesin 10-100 MG/5 ML Syrup 5 ML Cup PO PRN ×3 (00:34→16:35)
[2021-08-30] MEDS: Albuterol/Ipratropium 3.0-0.5 MG/3 ML Neb Soln INH PRN ×5 (00:39→21:24)
[2021-08-30] MEDS ORDERED: Insulin Glargine,Hum.Rec.Anlog 100 UNIT/ML 3 ML Pen SUBCUT SCH (08:07)
[2021-08-30] MEDS: Insulin Lispro 100 Unit/ML 3 ML KwikPen SUBCUT SCH ×4 (08:10→18:43)
[2021-08-30] MEDS: Aspirin 81 MG Tab.Chew PO SCH (08:31)
[2021-08-30] MEDS: busPIRone 5 MG Tab PO SCH ×2 (08:31→21:24)
[2021-08-30] MEDS: Benzonatate 100 MG Cap PO SCH ×2 (08:31→21:27)
[2021-08-30] MEDS: Gabapentin 600 MG Tab PO SCH ×2 (08:31→21:26)
[2021-08-30] MEDS: Famotidine 20 MG Tab PO SCH ×2 (08:32→21:26)
[2021-08-30] MEDS: Citalopram 20 MG Tab PO SCH (08:32)
[2021-08-30] MEDS: Furosemide 40 MG Tab PO SCH (08:32)
[2021-08-30] MEDS: Metolazone 2.5 MG Tab PO SCH (08:32)
[2021-08-30] MEDS: Losartan 25 MG Tab PO SCH (08:35)
[2021-08-30] MEDS: Clopidogrel 75 MG Tab PO SCH (08:35)
[2021-08-30] MEDS: Carvedilol 12.5 MG Tab PO SCH ×2 (08:35→21:25)
[2021-08-30] MEDS: Nicotine 14 MG/24 Hr Patch TRDERM SCH (11:39)
[2021-08-30] MEDS ORDERED: Perflutren Lipid Microspheres 2.2 MG/2 ML SDV IVPUSH ONE (13:05)
[2021-08-30] MEDS ORDERED: 50% Dextrose in Water 50 ML Syringe IVPUSH PRN ×2 (13:34→18:32)
[2021-08-30] MEDS ORDERED: Glucagon,Human Recombinant 1 MG Vial IM PRN ×2 (13:34→18:32)
[2021-08-30] MEDS: Insulin Lispro 100 Unit/ML 3 ML KwikPen SUBCUT ONE ×2 (14:38→18:38)
[2021-08-30] MEDS: Enoxaparin 40 MG/0.4 ML Syringe SUBCUT SCH (14:53)
[2021-08-30] MEDS ORDERED: Acetaminophen/HYDROcodone 325-5 MG Tab PO PRN (17:41)
[2021-08-30] MEDS ORDERED: Insulin Lispro 100 Unit/ML 3 ML KwikPen SUBCUT ONE (18:35)
[2021-08-30] MEDS: Tamsulosin 0.4 MG Cap.ER PO SCH (21:25)
[2021-08-30] MEDS: Montelukast 10 MG Tab PO SCH (21:26)
[2021-08-30] MEDS: atorvaSTATin 40 MG Tab PO SCH (21:26)
[2021-08-30] MEDS: LORazepam 0.5 MG Tab PO PRN (21:29)
[2021-08-31] MEDS: methylPREDNISolone Sodium Succinate 125 MG/2 ML SDV IVPUSH SCH ×2 (00:17→08:27)
[2021-08-31] MEDS: Sodium Chloride 0.9% 10 ML Syringe FLUSH PRN (00:19)
[2021-08-31] MEDS: Albuterol/Ipratropium 3.0-0.5 MG/3 ML Neb Soln INH PRN ×2 (03:13→09:41)
[2021-08-31] MEDS: Codeine/guaiFENesin 10-100 MG/5 ML Syrup 5 ML Cup PO PRN (03:16)
[2021-08-31 06:58] LABS: HEMOGLOBIN A1C 8.5 % (<5.7)
[2021-08-31] MEDS: Citalopram 20 MG Tab PO SCH (08:17)
[2021-08-31] MEDS: busPIRone 5 MG Tab PO SCH (08:17)
[2021-08-31] MEDS: Famotidine 20 MG Tab PO SCH (08:17)
[2021-08-31] MEDS: Furosemide 40 MG Tab PO SCH (08:17)
[2021-08-31] MEDS: Clopidogrel 75 MG Tab PO SCH (08:18)
[2021-08-31] MEDS: Losartan 25 MG Tab PO SCH (08:18)
[2021-08-31] MEDS: Aspirin 81 MG Tab.Chew PO SCH (08:18)
[2021-08-31] MEDS: Carvedilol 12.5 MG Tab PO SCH (08:18)
[2021-08-31] MEDS: Benzonatate 100 MG Cap PO SCH (08:19)
[2021-08-31] MEDS: Metolazone 2.5 MG Tab PO SCH (08:19)
[2021-08-31 08:20] VITALS: PULSE 74
[2021-08-31] MEDS: Insulin Lispro 100 Unit/ML 3 ML KwikPen SUBCUT SCH (08:27)
[2021-08-31] MEDS: Gabapentin 600 MG Tab PO SCH (08:40)
[2021-08-31] MEDS ORDERED: Insulin Glargine,Hum.Rec.Anlog 100 UNIT/ML 3 ML Pen SUBCUT SCH (09:00)
[2021-08-31 09:02] VITALS: BP 133/64
== END 2021-08-31 10:10 | disposition home or self-care (01) | DRG 193 ==
LOC: FB.ED 07:48 → FB.MS 09:50
PROVIDERS: ADMIT Emergency Medicine; ATTEND Family Medicine
DX: J18.0 Bronchopneumonia, unspecified organism (principal); J96.02 Acute respiratory failure with hypercapnia; J96.01 Acute respiratory failure with hypoxia; J96.21 Acute and chronic respiratory failure with hypoxia; J96.22 Acute and chronic respiratory failure with hypercapnia; I25.10 Atherosclerotic heart disease of native coronary artery without angina pectoris; J44.0 Chronic obstructive pulmonary disease with (acute) lower respiratory infection; J44.1 Chronic obstructive pulmonary disease with (acute) exacerbation; M19.90 Unspecified osteoarthritis, unspecified site; E78.5 Hyperlipidemia, unspecified; F41.9 Anxiety disorder, unspecified; I73.9 Peripheral vascular disease, unspecified; F17.210 Nicotine dependence, cigarettes, uncomplicated; Z79.84 Long term (current) use of oral hypoglycemic drugs; Z79.02 Long term (current) use of antithrombotics/antiplatelets; F41.1 Generalized anxiety disorder; E66.9 Obesity, unspecified; E11.9 Type 2 diabetes mellitus without complications; I11.0 Hypertensive heart disease with heart failure; I50.9 Heart failure, unspecified; Z20.822 Contact with and (suspected) exposure to COVID-19; Z79.899 Other long term (current) drug therapy; Z79.51 Long term (current) use of inhaled steroids; Z79.82 Long term (current) use of aspirin; Z68.30 Body mass index [BMI] 30.0-30.9, adult; Z98.42 Cataract extraction status, left eye; Z79.4 Long term (current) use of insulin; Z98.41 Cataract extraction status, right eye; Z95.5 Presence of coronary angioplasty implant and graft
CPT/HCPCS: 36415; 70450; 71045; 71275; 80048; 80053; 82947; 83036; 83735; 83880; 84484; 85025; 86140; 93005; 94640; 96374; 99285-25; A9270-GY; C8929; J0456; J0696; J1650; J1815; J1940; J2930; J7050; J7512; J7620-GY; Q9957; Q9967; U0002

== ENCOUNTER 2021-11-12 15:56 | Observation (INO) | payer MEDICARE ==
[2021-11-12] MEDS ORDERED: Morphine 4 MG/ML VIAL IVPUSH STA (15:58)
[2021-11-12] MEDS ORDERED: methylPREDNISolone Sodium Succinate 125 MG/2 ML SDV IVPUSH STA (16:00)
[2021-11-12] MEDS: Sodium Chloride 0.9% 10 ML Syringe FLUSH PRN ×3 (16:14→23:51)
[2021-11-12 16:20] LABS: BASE EXCESS VENOUS,POC 4 mmol/L (-2 - 3+); PCO2 VENOUS,POC 68 mmHg (41-51); PH VENOUS,POC 7.29 pH Units (7.32-7.43)
[2021-11-12] MEDS ORDERED: Ondansetron 4 MG/2 ML SDV IV PRN (17:34)
[2021-11-12] MEDS ORDERED: Albuterol 0.5% 5 MG/ML Neb Soln 20 ML Bottle NEB PRN (17:39)
[2021-11-12] MEDS ORDERED: Oxymetazoline 0.05% Nasal Spray 30 ML Bottle NASBOTH PRN (17:41)
[2021-11-12] MEDS ORDERED: cefTRIAXone 1 GM Vial IVPUSH SCH (18:00)
[2021-11-12] MEDS: Albuterol/Ipratropium 3.0-0.5 MG/3 ML Neb Soln NEB SCH ×2 (18:45→23:49)
[2021-11-12] MEDS: Enoxaparin 40 MG/0.4 ML Syringe SUBCUT SCH (18:51)
[2021-11-12] MEDS: Acetaminophen 325 MG Tab PO PRN (20:55)
[2021-11-12] MEDS ORDERED: busPIRone 10 MG Tab PO SCH (21:00)
[2021-11-12] MEDS ORDERED: Montelukast 10 MG Tab PO SCH (21:00)
[2021-11-12] MEDS ORDERED: atorvaSTATin 40 MG Tab PO SCH (21:00)
[2021-11-12] MEDS ORDERED: Tamsulosin 0.4 MG Cap.ER PO SCH (21:00)
[2021-11-12] MEDS: LORazepam 0.5 MG Tab PO PRN (21:08)
[2021-11-12] MEDS: Benzonatate 100 MG Cap PO SCH (21:16)
[2021-11-12] MEDS: Gabapentin 300 MG Cap PO SCH (21:18)
[2021-11-12] MEDS: Carvedilol 12.5 MG Tab PO SCH (21:27)
[2021-11-12] MEDS: Famotidine 20 MG Tab PO SCH (21:27)
[2021-11-12] MEDS ORDERED: busPIRone 5 MG Tab ONE (21:29)
[2021-11-12] MEDS: busPIRone 5 MG Tab PO SCH (21:39)
[2021-11-12] MEDS: Albuterol 0.083% 2.5 MG/3 ML Neb Soln NEB PRN (21:41)
[2021-11-12] MEDS: methylPREDNISolone Sodium Succinate 125 MG/2 ML SDV IVPUSH SCH (23:47)
[2021-11-13] MEDS: Albuterol 0.083% 2.5 MG/3 ML Neb Soln NEB PRN ×4 (03:54→21:47)
[2021-11-13] MEDS: Albuterol/Ipratropium 3.0-0.5 MG/3 ML Neb Soln NEB SCH ×3 (06:08→19:44)
[2021-11-13] MEDS ORDERED: Losartan 25 MG Tab PO SCH (09:00)
[2021-11-13] MEDS ORDERED: Aspirin 81 MG Tab.Chew PO SCH (09:00)
[2021-11-13] MEDS ORDERED: Clopidogrel 75 MG Tab PO SCH (09:00)
[2021-11-13] MEDS ORDERED: Citalopram 20 MG Tab PO SCH (09:00)
[2021-11-13] MEDS ORDERED: Furosemide 40 MG Tab PO SCH (09:00)
[2021-11-13] MEDS ORDERED: metFORMIN 1,000 MG Tab PO SCH (09:15)
[2021-11-13] MEDS ORDERED: Multivitamin Tab PO SCH (09:15)
[2021-11-13] MEDS: Sodium Chloride 0.9% 10 ML Syringe FLUSH PRN ×4 (09:56→22:12)
[2021-11-13] MEDS: methylPREDNISolone Sodium Succinate 125 MG/2 ML SDV IVPUSH SCH ×2 (09:56→19:53)
[2021-11-13] MEDS: Aspirin 81 MG Tab.Chew**OWN MED PO SCH (10:19)
[2021-11-13] MEDS: BUSPIRONE 10 MG PO SCH ×2 (10:19→21:50)
[2021-11-13] MEDS: Carvedilol 12.5 MG Tab**OWN MED PO SCH ×2 (10:20→21:51)
[2021-11-13] MEDS: Furosemide 40 MG Tab**OWN MED PO SCH (10:21)
[2021-11-13] MEDS: Gabapentin 300 MG Cap**OWN MED PO SCH ×2 (10:21→21:55)
[2021-11-13] MEDS: Losartan 25 MG Tab**OWN MED PO SCH (10:21)
[2021-11-13] MEDS: Clopidogrel 75 MG Tab**OWN MED PO SCH (10:22)
[2021-11-13] MEDS: CITALOPRAM 40 MG PO SCH (10:22)
[2021-11-13] MEDS: Multivitamin Tab**OWN MED PO SCH (10:22)
[2021-11-13] MEDS: Famotidine 20 MG Tab**OWN MED PO SCH ×2 (10:22→21:56)
[2021-11-13] MEDS: METFORMIN 1000 MG PO SCH ×2 (10:27→18:33)
[2021-11-13] MEDS: Doxycycline 100 MG in Sodium Chloride 0.9% 100 ML IV SCH ×2 (10:30→22:06)
[2021-11-13] MEDS: guaiFENesin 600 MG Tab.ER PO SCH ×2 (10:34→22:05)
[2021-11-13] MEDS ORDERED: Glucagon,Human Recombinant 1 MG Vial IM PRN (16:47)
[2021-11-13] MEDS ORDERED: 50% Dextrose in Water 50 ML Syringe IVPUSH PRN (16:47)
[2021-11-13] MEDS ORDERED: Insulin Lispro 100 Unit/ML 3 ML KwikPen SUBCUT ONE (18:19)
[2021-11-13] MEDS: Insulin Lispro 100 Unit/ML 3 ML KwikPen SUBCUT SCH ×2 (18:27→21:58)
[2021-11-13] MEDS: Enoxaparin 40 MG/0.4 ML Syringe SUBCUT SCH (18:37)
[2021-11-13] MEDS: Acetaminophen 325 MG Tab PO PRN (18:46)
[2021-11-13] MEDS: Carvedilol 12.5 MG Tab PO SCH (20:19)
[2021-11-13] MEDS: busPIRone 5 MG Tab PO SCH (20:19)
[2021-11-13] MEDS: Famotidine 20 MG Tab PO SCH (20:20)
[2021-11-13] MEDS: Gabapentin 300 MG Cap PO SCH (20:20)
[2021-11-13] MEDS: Benzonatate 100 MG Cap PO SCH (20:23)
[2021-11-13] MEDS: Tamsulosin 0.4 MG Cap.ER**OWN MED PO SCH (21:53)
[2021-11-13] MEDS: atorvaSTATin 40 MG Tab**OWN MED PO SCH (21:54)
[2021-11-13] MEDS: LORazepam 0.5 MG Tab PO PRN (21:57)
[2021-11-13] MEDS: Montelukast 10 MG Tab**OWN MED PO SCH (21:57)
[2021-11-14] MEDS: Albuterol/Ipratropium 3.0-0.5 MG/3 ML Neb Soln NEB SCH ×5 (00:35→21:51)
[2021-11-14] MEDS: Insulin Lispro 100 Unit/ML 3 ML KwikPen SUBCUT SCH ×4 (08:28→21:03)
[2021-11-14] MEDS: METFORMIN 1000 MG PO SCH ×2 (08:30→17:00)
[2021-11-14] MEDS: Aspirin 81 MG Tab.Chew**OWN MED PO SCH (08:41)
[2021-11-14] MEDS: Carvedilol 12.5 MG Tab**OWN MED PO SCH ×2 (08:42→21:00)
[2021-11-14] MEDS: BUSPIRONE 10 MG PO SCH ×2 (08:42→21:00)
[2021-11-14] MEDS: Losartan 25 MG Tab**OWN MED PO SCH (08:45)
[2021-11-14] MEDS: Furosemide 40 MG Tab**OWN MED PO SCH (08:45)
[2021-11-14] MEDS: Gabapentin 300 MG Cap**OWN MED PO SCH ×2 (08:46→21:06)
[2021-11-14] MEDS: CITALOPRAM 40 MG PO SCH (08:47)
[2021-11-14] MEDS: Famotidine 20 MG Tab**OWN MED PO SCH ×2 (08:48→21:01)
[2021-11-14] MEDS: Multivitamin Tab**OWN MED PO SCH (08:50)
[2021-11-14] MEDS: guaiFENesin 600 MG Tab.ER PO SCH (10:23)
[2021-11-14] MEDS: methylPREDNISolone Sodium Succinate 125 MG/2 ML SDV IVPUSH SCH (10:25)
[2021-11-14] MEDS: Doxycycline 100 MG in Sodium Chloride 0.9% 100 ML IV SCH ×2 (10:27→21:54)
[2021-11-14] MEDS: Budesonide 0.5 MG/2 ML Neb Susp NEB SCH ×2 (11:48→21:53)
[2021-11-14] MEDS: Clopidogrel 75 MG Tab**OWN MED PO SCH (15:22)
[2021-11-14] MEDS: Codeine/guaiFENesin 10-100 MG/5 ML Syrup 5 ML Cup PO PRN (15:23)
[2021-11-14] MEDS: Enoxaparin 40 MG/0.4 ML Syringe SUBCUT SCH (17:00)
[2021-11-14] MEDS: Albuterol 0.083% 2.5 MG/3 ML Neb Soln NEB PRN (19:02)
[2021-11-14] MEDS: atorvaSTATin 40 MG Tab**OWN MED PO SCH (21:01)
[2021-11-14] MEDS: Tamsulosin 0.4 MG Cap.ER**OWN MED PO SCH (21:01)
[2021-11-14] MEDS: Montelukast 10 MG Tab**OWN MED PO SCH (21:02)
[2021-11-14] MEDS: LORazepam 0.5 MG Tab PO PRN (22:02)
[2021-11-14] MEDS: Sodium Chloride 0.9% 10 ML Syringe FLUSH PRN (22:10)
[2021-11-15] MEDS: Albuterol/Ipratropium 3.0-0.5 MG/3 ML Neb Soln NEB SCH ×3 (05:40→10:52)
[2021-11-15] MEDS: Budesonide 0.5 MG/2 ML Neb Susp NEB SCH ×2 (05:50→06:00)
[2021-11-15] MEDS ORDERED: Doxycycline 100 MG Tab PO SCH (08:00)
[2021-11-15] MEDS ORDERED: predniSONE 20 MG Tab PO SCH (08:00)
[2021-11-15] MEDS: METFORMIN 1000 MG PO SCH (08:30)
[2021-11-15] MEDS: BUSPIRONE 10 MG PO SCH (08:31)
[2021-11-15] MEDS: Aspirin 81 MG Tab.Chew**OWN MED PO SCH (08:31)
[2021-11-15] MEDS: Carvedilol 12.5 MG Tab**OWN MED PO SCH (08:31)
[2021-11-15] MEDS: Furosemide 40 MG Tab**OWN MED PO SCH (08:32)
[2021-11-15] MEDS: CITALOPRAM 40 MG PO SCH (08:32)
[2021-11-15] MEDS: Losartan 25 MG Tab**OWN MED PO SCH (08:32)
[2021-11-15] MEDS: Clopidogrel 75 MG Tab**OWN MED PO SCH (08:33)
[2021-11-15] MEDS: Multivitamin Tab**OWN MED PO SCH (08:33)
[2021-11-15] MEDS: Famotidine 20 MG Tab**OWN MED PO SCH (08:33)
[2021-11-15] MEDS: Gabapentin 300 MG Cap**OWN MED PO SCH (08:34)
[2021-11-15] MEDS: Acetaminophen 325 MG Tab PO PRN (08:43)
[2021-11-15] MEDS: Codeine/guaiFENesin 10-100 MG/5 ML Syrup 5 ML Cup PO PRN (08:45)
== END 2021-11-15 13:30 | disposition home or self-care (01) ==
LOC: FB.ED 15:56 → FB.MS 17:34
PROVIDERS: ADMIT Emergency Medicine; ATTEND Family Medicine
DX: J44.1 Chronic obstructive pulmonary disease with (acute) exacerbation (principal); J45.41 Moderate persistent asthma with (acute) exacerbation; J96.22 Acute and chronic respiratory failure with hypercapnia; F41.1 Generalized anxiety disorder; I11.0 Hypertensive heart disease with heart failure; I50.812 Chronic right heart failure; E78.00 Pure hypercholesterolemia, unspecified; I25.10 Atherosclerotic heart disease of native coronary artery without angina pectoris; E11.51 Type 2 diabetes mellitus with diabetic peripheral angiopathy without gangrene; M19.90 Unspecified osteoarthritis, unspecified site; E66.9 Obesity, unspecified; Z68.36 Body mass index [BMI] 36.0-36.9, adult; Z95.5 Presence of coronary angioplasty implant and graft; Z20.822 Contact with and (suspected) exposure to COVID-19; Z79.02 Long term (current) use of antithrombotics/antiplatelets; Z79.82 Long term (current) use of aspirin; Z79.899 Other long term (current) drug therapy; Z79.84 Long term (current) use of oral hypoglycemic drugs; Z79.52 Long term (current) use of systemic steroids
CPT/HCPCS: 36415; 71045; 80048; 80053; 82947; 83880; 84484; 85025; 93005; 93010; 94640; 96365; 96366; 96372; 96374; 96375; 96376; 99284; 99285-25; A9270-GY; G0378; J0696; J1650; J1815; J2270; J2930; J3490; J7512; J7620; U0002

== ENCOUNTER 2021-11-26 06:55 | Emergency (ER) | payer MEDICARE ==
[2021-11-26] MEDS ORDERED: Propofol 200 MG/20 ML SDV IV ONE (06:56)
[2021-11-26] MEDS ORDERED: Succinylcholine 200 MG/10 ML MDV IV ONE (06:56)
[2021-11-26] MEDS ORDERED: ePHEDrine 50 MG/ML SDV IV ONE (06:56)
[2021-11-26] MEDS ORDERED: Lactated Ringers 1,000 ML IV SCH (07:15)
[2021-11-26] MEDS ORDERED: Albuterol/Ipratropium 3.0-0.5 MG/3 ML Neb Soln ONE (07:22)
[2021-11-26 07:45] LABS: PO2 ARTERIAL,POC 169 mmHg (83-108)
== END 2021-11-26 08:00 ==
LOC: FB.ED 06:55
DX: I46.9 Cardiac arrest, cause unspecified (principal); J44.1 Chronic obstructive pulmonary disease with (acute) exacerbation; E87.2 Acidosis; I11.0 Hypertensive heart disease with heart failure; I25.10 Atherosclerotic heart disease of native coronary artery without angina pectoris; E78.00 Pure hypercholesterolemia, unspecified; I10 Essential (primary) hypertension; E11.9 Type 2 diabetes mellitus without complications; E66.9 Obesity, unspecified; Z68.28 Body mass index [BMI] 28.0-28.9, adult; Z79.899 Other long term (current) drug therapy; Z79.82 Long term (current) use of aspirin; Z79.84 Long term (current) use of oral hypoglycemic drugs
CPT/HCPCS: 31500; 36415; 51702; 71045; 80048; 82803; 84484; 85027; 85379; 92950; 93005; 99285; J0330; J2704; J7120

== ENCOUNTER 2021-12-18 11:17 | Emergency (ER) | payer MEDICARE ==
[2021-12-18] MEDS ORDERED: Lidocaine 4% 1 each Patch TOP SCH (13:00)
== END 2021-12-18 13:29 | disposition home or self-care (01) ==
LOC: FB.ED 11:17
DX: M54.81 Occipital neuralgia (principal); D64.9 Anemia, unspecified; J44.9 Chronic obstructive pulmonary disease, unspecified; I11.0 Hypertensive heart disease with heart failure; I50.9 Heart failure, unspecified; E78.00 Pure hypercholesterolemia, unspecified; E11.9 Type 2 diabetes mellitus without complications; E66.9 Obesity, unspecified; Z79.82 Long term (current) use of aspirin; Z79.02 Long term (current) use of antithrombotics/antiplatelets; Z79.84 Long term (current) use of oral hypoglycemic drugs; Z79.899 Other long term (current) drug therapy; Z68.35 Body mass index [BMI] 35.0-35.9, adult
CPT/HCPCS: 36415; 70450; 71046; 80053; 85025; 99282; 99284-25